=== PATIENT | male | born 1985 | race Two or more races ===

== ENCOUNTER 2020-01-13 17:39 | Inpatient (IN) | payer OTHER ==
[~2020-01-13] VITALS: Ht 175.3 cm; Wt 66.5 kg
[2020-01-13 17:47] VITALS: BP 108/58
--- NOTE | 2020-01-13 18:09 | Emergency Room Report ---
History of Present Illness General Chief Complaint: Dizziness Source: Patient (Christine Lorenzana) Present Illness HPI 34-year-old male with history of alcohol abuse brought in by paramedics due to hypotension. Patient reports that he went to [facility] earlier today due to a laceration on hand after he tried to break of a bottle of wine. Laceration was repaired however patient lost a lot of blood and believes that feels dizzy and is hypotensive. Patient also feels hungry. Denies any headache at this time he denies any head trauma or syncope. Denies chest pain shortness of breath, nausea vomiting at this time however reports that earlier today he was nauseated. Denies cough and congestion, loss of taste or smell, shortness of breath, diarrhea. Has not taken medication for symptom relief. Reports that earlier today he drank alcohol. Denies other drug use. Reports that he smokes tobacco. Patient is neurovascularly intact. No unilateral generalized weakness noted. No acute bleeding noted at this time. (Christine Lorenzana) Allergies: Coded Allergies: No Known Allergies (Unverified , 01/13/20) COVID-19 Screening Contact w/high risk pt: No Experienced COVID-19 symptoms?: No COVID-19 Testing performed OCCUPATIONAL THERAPY SPECIALIST: No (Christine Lorenzana) Patient History Past Medical History: see triage record Past Surgical History: none Pertinent Family History: none Immunizations: UTD Reviewed Nursing Documentation: PMH: Agreed; PSxH: Agreed (Christine Lorenzana) Nursing Documentation-PMH Past Medical History: No Stated History (Christine Lorenzana) Review of Systems All Other Systems: negative except mentioned in HPI (Christine Lorenzana) Physical Exam Vital Signs Date Time Temp Pulse Resp B/P (MAP) Pulse Ox O2 Delivery O2 Flow Rate FiO2 01/13/20 17:37 98.1 96 18 93/63 (73) 98 Room Air Sp02 EP Interpretation: reviewed, abnormal - Low blood pressure General Appearance: no apparent distress, alert, GCS 15, non-toxic Head: normocephalic, atraumatic Eyes: bilateral eye normal inspection, bilateral eye PERRL ENT: hearing grossly normal, normal pharynx, no angioedema, normal voice Neck: full range of motion, supple/symm/no masses Respiratory: chest non-tender, lungs clear, normal breath sounds, no rhonchi, no respiratory distress, no retraction, speaking full sentences Cardiovascular #1: regular rate, rhythm, no edema, no murmur Cardiovascular #2: 2+ carotid (R), 2+ carotid (L), 2+ radial (R), 2+ radial (L) , 2+ dorsalis pedis (R), 2+ dorsalis pedis (L) Gastrointestinal: normal bowel sounds, non tender, soft, non-distended, no guarding, no rebound Rectal: deferred Genitourinary: no CVA tenderness Musculoskeletal: back normal, digits/nails normal, no calf tenderness Neurologic: alert, motor strength/tone normal, oriented x3, sensory intact, responsive, speech normal Psychiatric: judgement/insight normal, memory normal, mood/affect normal, no suicidal/homicidal ideation Skin: other - Repaired lack dorsum of left hand Lymphatic: no adenopathy, axilla node tender (R) (Christine Lorenzana) Procedures Splinting Splinting : Consent: Verbal Location: distal ulna Splint: ulnar Pre-Proc Neuro Vasc Exam: normal Post-Proc Neuro Vasc Exam: normal Patient Tolerated: Well Complications: None Progress sling (Christine Lorenzana) Medical Decision Making PA Attestation All diagnosis and treatment plans were discussed and reviewed by my supervising physician Dr. Tao (Christine Lorenzana) Diagnostic Impression: Primary Impression: Hypotension Additional Impressions: Pulmonary nodule Distal end of ulna fracture, closed Ruled Out: Presence of inferior vena cava filter ER Course 34-year-old male with history of alcohol abuse brought in by paramedics due to hypotension. Patient reports that he went to [facility] earlier today due to a laceration on hand after he tried to break of a bottle of wine. Laceration was repaired however patient lost a lot of blood and believes that feels dizzy and is hypotensive. Patient also feels hungry. Denies any headache at this time he denies any head trauma or syncope. Denies chest pain shortness of breath, nausea vomiting at this time however reports that earlier today he was nauseated. Denies cough and congestion, loss of taste or smell, shortness of breath, diarrhea. Has not taken medication for symptom relief. Reports that earlier today he drank alcohol. Denies other drug use. Reports that he smokes tobacco. Patient is neurovascularly intact. No unilateral generalized weakness noted. No acute bleeding noted at this time. After visualization of chest x-ray IVC filter was noted and patient notified me that may have been placed in 2 to 2-1/2 years ago due to trauma however did not note that the filter is still in place. Patient has a follow-up with primary doctor again specialist since. Patient also denies any chest pain, hematochezia, melena, chest pain, shortness of breath, nausea vomiting and hemoptysis or hematemesis. Also reports that he had this pain removed at the age of 23 secondary to rib fracture and puncture spleen. Ddx considered but are not limited to: Dizziness due to alcohol intoxication, dizziness unspecified, dizziness due to head trauma, dizziness secondary to cardiac reasons Vital signs: are WNL, pt. is afebrile H&PE are most consistent with: Hypotension, presence of IVC, pulmonary nodule, distal ulnar fx ORDERS: CBC, CMP, UA, tox screen, CK, EtOH level, head CT no contrast, chest x- ray, EKG, troponin ER intervention: NS bolus, Zofran Recommended to do an echo as the patient has an early second troponin Patient was admitted with diagnosis of hypertension, pulmonary nodule, IVC filter to under supervision of : Dinh pt stable at time of admission I signed out the patient to Dr. Tao at 8:30 PM (Christine Lorenzana) ER Course Pt signed out to me from [facility]. Differential diagnosis for the patients symptoms include causes of peripheral vertigo (including BPPV, vestibular neuritis, Menieres disease, viral labyrinthitis), causes of central vertigo (including cerebellar ischemic stroke , hemorrhagic stroke, acoustic neuroma, vertebrobasilar insufficiency), malignant arrhythmias, obstructive heart disease (critical aortic stenosis, hypertrophic cardiomyopathy), acute anemia, severe dehydration, electrolyte abnormalities, among others. Patient's exam shows borderline hypotension, however SBP > 90mmHg and MAP > 75. He is not altered and perfusing well. He is otherwise afebrile with no reflexive tachycardia, pulse deficits, or fever. EKG shows no signs of malignant arrhythmia such as Brugada syndrome, delta wave , epsilon wave, significant heart block, or QTc >500. CXR shows thoracic aortic stent graft. No displacement. No PTX, hemothorax or wide mediastinum. Pt states it was placed in [place] several years ago after Troponin is negativex1. Labs show no severe electrolyte derangement such as severe hyponatremia, hypokalemia, acidosis, or hypoglycemia. UDS was positive for meth. Orthostatics were negative prior to fluid bolus. Patient was transiently fluid responsive. The patient denies any external blood loss and has no significant pallor or evidence of acute anemia as a cause of their symptoms. Hemoglobin is not severely low, and acute blood transfusion is not indicated. In addition, the patient has no loud murmur or evidence of significant obstructive heart disease, symptoms are not in the setting of exertion. The patient is neurologically intact, with normal cerebellar exam, without any evidence of central vertigo as a cause of their symptoms. They appear well hydrated without any evidence of severe dehydration or acute hypovolemia. However, given the patients risk factors, the patient would benefit from admission to observation for continuous cardiac monitoring, given the possibility of cardiac syncope. I spoke with Dr. Bai, and reviewed the patients presentation, workup, results , and treatment. They will admit the patient for further care and evaluation, and assume care of the patient at this time. patient refused ulnar gutter splint (Ana Lilia Tao.Saad) EKG Diagnostic Results Rate: normal Rhythm: NSR ST Segments: no acute changes Other Impression No acute ST changes (Christine Lorenzana) Chest X-Ray Diagnostic Results Chest X-Ray Diagnostic Results : Chest X-Ray Ordered: Yes # of Views/Limited/Complete: 1 View Indication: Other EP Interpretation: Yes PA Xray: Interpretation reviewed, by supervising MD, and agrees with findings. Interpretation: no consolidation, no effusion, no pneumothorax, no acute cardiopulmonary disease Impression: No acute disease Electronically Signed by: Christine Her Text FINDINGS: Lungs: The lungs are well aerated. 0.4 cm nodule at the periphery of the right upper lobe Minimal scarring at the right lung base. Pleural space: Unremarkable. No pneumothorax. Heart: Cardiomediastinal silhouette unremarkable. Mediastinum: See above. Bones/joints: The ribs are unremarkable. Vasculature: Thoracic aortic stent graft is noted in place appeared IMPRESSION: 1. 0.4 cm nodule right upper lobe of uncertain etiology appeared 2. Minimal scarring at the right lung base. 3. CT imaging of the chest without contrast is advised for further evaluation. (Christine Lorenzana) Other X-Ray Diagnostic Results Other X-Ray Diagnostic Results : X-Ray ordered: left hand # of Views/Limited Vs Complete: 2 View Indication: Pain EP Interpretation: Yes PA Xray: Interpretation reviewed, by supervising MD, and agrees with findings. Interpretation: other - healing fx distal ulna Impression: Other - healing fx distal ulna Electronically Signed by: Christine BLACK Scribe Text COMPARISON: None. FINDINGS: Bones/joints: No acute fracture, dislocation, or destructive process is noted about the left hand. There is a healing fracture of the distal ulna with callus formation. Soft tissues: Soft tissues are unremarkable. No radiopaque foreign body. IMPRESSION: 1. No acute fracture or dislocation detected. 2. Healing fracture about the distal ulna with callus formation. (Christine Lorenzana) CT/MRI/US Diagnostic Results CT/MRI/US Diagnostic Results : Imaging Test Ordered: CT head no contrast Impression TECHNIQUE: Axial computed tomography images of the head/brain without intravenous contrast. CTDI is 53.40 mGy and DLP is 1098.90 mGy-cm. One or more of the following dose reduction techniques were used: automated exposure control, adjustment of the mA and/or kV according to patient size, use of iterative reconstruction technique. COMPARISON: None. FINDINGS: Brain: No abnormal extra-axial collection could No hemorrhage. Midline shift: No midline shift or mass-effect. Ventricles: There is dilatation of the anterior horn of the left lateral ventricle of uncertain significant. Bones/joints: The calvarium is unremarkable. No acute fracture. Soft tissues: Unremarkable. Sinuses: Mild chronic ethmoid sinusitis. Mastoid air cells: Mastoid air cells are well pneumatized. IMPRESSION: 1. Dilatation of the anterior horn of the left lateral ventricle of uncertain significance. 2. No acute intracranial pathology is detected. 3. If there is concern for etiology such as early acute lacunar infarcts, magnetic resonance imaging of the brain with diffusion-weighted sequences should be performed for follow-up. (Christine Lorenzana) Last Vital Signs Date Time Temp Pulse Resp B/P (MAP) Pulse Ox O2 Delivery O2 Flow Rate FiO2 01/13/20 17:47 98.1 68 16 108/58 100 Room Air (Christine Lorenzana) Christine Lorenzana Jan 13, 2020 18:08 Ana Lilia Tao D.O. Jan 14, 2020 10:23
--- NOTE | 2020-01-13 18:29 | Diagnostic Imaging Report ---
EXAM: CT Head Without Intravenous Contrast CLINICAL HISTORY: Dizziness. TECHNIQUE: Axial computed tomography images of the head/brain without intravenous contrast. CTDI is 53.40 mGy and DLP is 1098.90 mGy-cm. One or more of the following dose reduction techniques were used: automated exposure control, adjustment of the mA and/or kV according to patient size, use of iterative reconstruction technique. COMPARISON: None. FINDINGS: Brain: No abnormal extra-axial collection could No hemorrhage. Midline shift: No midline shift or mass-effect. Ventricles: There is dilatation of the anterior horn of the left lateral ventricle of uncertain significant. Bones/joints: The calvarium is unremarkable. No acute fracture. Soft tissues: Unremarkable. Sinuses: Mild chronic ethmoid sinusitis. Mastoid air cells: Mastoid air cells are well pneumatized. IMPRESSION: 1. Dilatation of the anterior horn of the left lateral ventricle of uncertain significance. 2. No acute intracranial pathology is detected. 3. If there is concern for etiology such as early acute lacunar infarcts, magnetic resonance imaging of the brain with diffusion-weighted sequences should be performed for follow-up.
[2020-01-13 18:30] LABS: BASOPHILS % (AUTO) 0.9 % (0.0-2.0); EOSINOPHILS % (AUTO) 0.2 % (0.0-3.0); HEMATOCRIT 31.6 % (42.0-52.0); HEMOGLOBIN 10.9 G/DL (14.2-18.0); LYMPHOCYTES % (AUTO) 9.8 % (20.0-45.0); MEAN CORPUSCULAR VOLUME 96 FL (80-99); MONOCYTES % (AUTO) 5.5 % (1.0-10.0); NEUTROPHILS % (AUTO) 83.6 % (45.0-75.0); PLATELET COUNT 205 K/UL (150-450); RED BLOOD COUNT 3.29 M/UL (4.70-6.10); RED CELL DISTRIBUTION WIDTH 12.6 % (11.6-14.8); WHITE BLOOD COUNT 9.2 K/UL (4.8-10.8)
--- NOTE | 2020-01-13 18:30 | Diagnostic Imaging Report ---
EXAM: XR Chest, 1 View CLINICAL HISTORY: Chest pain. TECHNIQUE: Frontal view of the chest. COMPARISON: None FINDINGS: Lungs: The lungs are well aerated. 0.4 cm nodule at the periphery of the right upper lobe Minimal scarring at the right lung base. Pleural space: Unremarkable. No pneumothorax. Heart: Cardiomediastinal silhouette unremarkable. Mediastinum: See above. Bones/joints: The ribs are unremarkable. Vasculature: Thoracic aortic stent graft is noted in place appeared IMPRESSION: 1. 0.4 cm nodule right upper lobe of uncertain etiology appeared 2. Minimal scarring at the right lung base. 3. CT imaging of the chest without contrast is advised for further evaluation.
[2020-01-13 18:40] LABS: ANION GAP 9 mmol/L (5-15); BLOOD UREA NITROGEN 11 mg/dL (7-18); CALCIUM 8.1 MG/DL (8.5-10.1); CARBON DIOXIDE 25 MMOL/L (21-32); CHLORIDE 103 MMOL/L (98-107); CREATININE 0.8 MG/DL (0.55-1.30); POTASSIUM 4.2 MMOL/L (3.5-5.1); SODIUM 137 MMOL/L (136-145)
[2020-01-13 18:44] LABS: CREATINE KINASE 125 U/L (26-308)
[2020-01-13 18:47] LABS: APPEARANCE,URINE SLIGHTLY CLOUDY; BILIRUBIN, URINE 1+ (NEGATIVE); GLUCOSE, URINE (UA) NEGATIVE (NEGATIVE); KETONES,URINE 2+ (NEGATIVE); LEUKOCYTE ESTERASE ,URINE 1+ (NEGATIVE); NITRITE,URINE NEGATIVE (NEGATIVE); PH,URINE 6.5 (4.5-8.0); PROTEIN,URINE 2+ (NEGATIVE); UROBILINOGEN,URINE 8 MG/DL (0.0-1.0)
[2020-01-13 18:50] LABS: COLOR,URINE YELLOW
[2020-01-13 18:52] LABS: ALANINE AMINOTRANSFERASE 20 U/L (12-78); ALBUMIN 3.3 G/DL (3.4-5.0); ALBUMIN/GLOBULIN RATIO 1.3 (1.0-2.7); ALKALINE PHOSPHATASE 60 U/L (46-116); ASPARTATE AMINO TRANSFERASE 26 U/L (15-37); BILIRUBIN,TOTAL 0.8 MG/DL (0.2-1.0)
--- NOTE | 2020-01-13 18:58 | Diagnostic Imaging Report ---
EXAM: XR Left Hand Complete, 3 or More Views CLINICAL HISTORY: TRAUMA TECHNIQUE: Frontal, lateral and oblique views of the left hand. COMPARISON: None. FINDINGS: Bones/joints: No acute fracture, dislocation, or destructive process is noted about the left hand. There is a healing fracture of the distal ulna with callus formation. Soft tissues: Soft tissues are unremarkable. No radiopaque foreign body. IMPRESSION: 1. No acute fracture or dislocation detected. 2. Healing fracture about the distal ulna with callus formation.
[2020-01-13 19:10] VITALS: BP 98/68
[2020-01-13] MEDS ORDERED: cefTRIAXone 1 GM in NS 55 ML IVPB ONE (19:15)
[2020-01-13 21:00] VITALS: BP 127/82
[2020-01-13] MEDS ORDERED: Morphine Sulfate 4mg/ml Inj (IV USE ONLY) IVP PRN (22:30)
[2020-01-13 23:00] VITALS: BP 121/78
[2020-01-13 23:45] VITALS: BP 106/50
[2020-01-14 04:00] VITALS: BP 104/53
[2020-01-14 08:00] VITALS: BP 117/68
[2020-01-14] MEDS: D5 1/2NS 1,000 ML IV SCH (09:07)
[2020-01-14 12:00] VITALS: BP 112/64
--- NOTE | 2020-01-14 12:34 | Consultation ---
History of Present Illness General Date patient seen: Jan 14, 2020 Reason for Hospitalization: Dizziness Present Illness HPI This is a 34-year-old male with history of opiate use and alcohol abuse who initially presented to [facility] recently with left hand laceration from a wine bottle which was repaired. States he felt he lost a lot of blood was discharged and felt dizzy and weak and was brought to [facility] for evaluation thereafter. Admitted further care and management. Patient states he had a dressing/type a splint placed on his left hand but he took it off himself and was unsure what to do with the hand and wound at this time. Surgery called to evaluate and assist with care. Patient seen, patient eval, chart reviewed. States discomfort in the left hand with edema no drainage. Imaging reviewed. Allergies: Coded Allergies: No Known Allergies (Unverified , 01/13/20) COVID-19 Screening Contact w/high risk pt: No Experienced COVID-19 symptoms?: No Patient History History Provided By: Patient, Medical Record, PMD Healthcare decision maker Resuscitation status Advanced Directive on File Past Medical/Surgical History Past Medical/Surgical History: (1) Presence of inferior vena cava filter (2) Dizziness (3) Hypotension (4) Pulmonary nodule (5) Distal end of ulna fracture, closed (6) left hand lceration (7) Laceration of left hand Review of Systems Review of Symptoms General ROS: no weight loss or fever Psychological ROS: no depression or mood changes, no memory loss Ophthalmic ROS: no visual changes or eye irritation ENT ROS: no nasal congestion, hearing loss, dizziness Allergy and Immunology ROS: no allergic symptoms or urticaria Hematological and Lymphatic ROS: no swollen glands, unusual bleeding or bruising Endocrine ROS: no polyuria, polydipsia, weight changes, temperature intolerance Respiratory ROS: no cough, shortness of breath, or wheezing Cardiovascular ROS: no chest pain or dyspnea on exertion Gastrointestinal ROS: denies abdominal pain, bright red blood in stool. Musculoskeletal ROS: no myalgias or arthralgias Neurological ROS: no TIA or stroke symptoms Dermatological ROS: no new or changing skin lesions, rashes or pruritis Physical Exam Physical Exam General appearance: alert, cooperative, no distress, appears stated age Head: Normocephalic, without obvious abnormality, atraumatic Eyes: conjunctivae/corneas clear. PERRL, EOM's intact. Fundi benign Throat: Lips, mucosa, and tongue normal. Teeth and gums normal Neck: supple, symmetrical, trachea midline, no adenopathy, thyroid: not enlarged, symmetric, no tenderness/mass/nodules, no carotid bruit and no JVD Lungs: clear to auscultation bilaterally Heart: regular rate and rhythm, S1, S2 normal, no murmur, click, rub or gallop Abdomen: soft, non-tender. Bowel sounds normal. No masses, no organomegaly Extremities: extremities left hand fifth digit dorsal laceration 5 cm status post repair edema noted no infection noted no drainage noted currently undressed. Pulses: 2+ and symmetric Skin: Skin color, texture, turgor normal. No rashes or lesions Neurologic: Grossly normal Last 24 Hour Vital Signs Date Time Temp Pulse Resp B/P (MAP) Pulse Ox O2 Delivery O2 Flow Rate FiO2 01/14/20 12:00 97.9 60 20 112/64 (80) 99 01/14/20 09:00 Room Air 01/14/20 08:44 69 01/14/20 08:00 97.9 60 20 117/68 (84) 98 01/14/20 04:00 75 01/14/20 04:00 97.6 70 19 104/53 (70) 100 01/14/20 03:07 65 01/14/20 00:00 75 01/13/20 23:54 Room Air 01/13/20 23:45 97.9 67 19 106/50 (68) 98 01/13/20 23:40 98.0 88 18 121/78 98 Room Air 01/13/20 23:00 98.2 82 18 121/78 100 Room Air 01/13/20 21:00 98.2 88 18 127/82 100 Room Air 01/13/20 19:10 98.2 85 16 98/68 100 Room Air 01/13/20 17:47 98.1 68 16 108/58 100 Room Air 01/13/20 17:47 96 18 Room Air 01/13/20 17:37 98.1 96 18 93/63 (73) 98 Room Air Intake and Output 01/13/20 01/14/20 19:00 07:00 Intake Total 1000 ml 300 ml Output Total 800 ml Balance 1000 ml -500 ml Intake Oral 300 ml IV Total 1000 ml Output Urine Total 800 ml # Voids 1 Laboratory Tests Test 8/29/20 17:10 01/13/20 17:50 01/13/20 18:40 01/14/20 08:55 Salicylates Level 2.9 ug/mL (2.8-20) White Blood Count 9.2 K/UL (4.8-10.8) Red Blood Count 3.29 M/UL (4.70-6.10) L Hemoglobin 10.9 G/DL (14.2-18.0) L Hematocrit 31.6 % (42.0-52.0) L Mean Corpuscular Volume 96 FL (80-99) Mean Corpuscular Hemoglobin 33.1 PG (27.0-31.0) H Mean Corpuscular Hemoglobin Concent 34.5 G/DL (32.0-36.0) Red Cell Distribution Width 12.6 % (11.6-14.8) Platelet Count 205 K/UL (150-450) Mean Platelet Volume 8.4 FL (6.5-10.1) Neutrophils (%) (Auto) 83.6 % (45.0-75.0) H Lymphocytes (%) (Auto) 9.8 % (20.0-45.0) L Monocytes (%) (Auto) 5.5 % (1.0-10.0) Eosinophils (%) (Auto) 0.2 % (0.0-3.0) Basophils (%) (Auto) 0.9 % (0.0-2.0) Prothrombin Time 11.1 SEC (9.30-11.50) Prothromb Time International Ratio 1.0 (0.9-1.1) Activated Partial Thromboplast Time 22 SEC (23-33) L Sodium Level 137 MMOL/L (136-145) Potassium Level 4.2 MMOL/L (3.5-5.1) Chloride Level 103 MMOL/L (98-107) Carbon Dioxide Level 25 MMOL/L (21-32) Anion Gap 9 mmol/L (5-15) Blood Urea Nitrogen 11 mg/dL (7-18) Creatinine 0.8 MG/DL (0.55-1.30) Estimat Glomerular Filtration Rate > 60 mL/min (>60) Glucose Level 118 MG/DL (74-106) H Calcium Level 8.1 MG/DL (8.5-10.1) L Total Bilirubin 0.8 MG/DL (0.2-1.0) Aspartate Amino Transf (AST/SGOT) 26 U/L (15-37) Alanine Aminotransferase (ALT/SGPT) 20 U/L (12-78) Alkaline Phosphatase 60 U/L (46-116) Total Creatine Kinase 125 U/L (26-308) Troponin I 0.011 ng/mL (0.000-0.056) 0.000 ng/mL (0.000-0.056) Total Protein 5.9 G/DL (6.4-8.2) L Albumin 3.3 G/DL (3.4-5.0) L Globulin 2.6 g/dL Albumin/Globulin Ratio 1.3 (1.0-2.7) Thyroid Stimulating Hormone (TSH) 0.664 uiU/mL (0.358-3.740) Acetaminophen Level < 2 MCG/ML (10-30) L Serum Alcohol 5 mg/dL Urine Color Yellow Urine Appearance Slightly cloudy Urine pH 6.5 (4.5-8.0) Urine Specific [place] 1.015 (1.005-1.035) Urine Protein 2+ (NEGATIVE) H Urine Glucose (UA) Negative (NEGATIVE) Urine Ketones 2+ (NEGATIVE) H Urine Blood Negative (NEGATIVE) Urine Nitrite Negative (NEGATIVE) Urine Bilirubin 1+ (NEGATIVE) H Urine Ictotest Negative (NEGATIVE) Urine Urobilinogen 8 MG/DL (0.0-1.0) H Urine Leukocyte Esterase 1+ (NEGATIVE) H Urine RBC 0 /HPF (0 - 0) Urine WBC 5-10 /HPF (0 - 0) H Urine Squamous Epithelial Cells None /LPF (NONE/OCC) Urine Amorphous Sediment Moderate /LPF (NONE) H Urine Bacteria Few /HPF (NONE) Urine Opiates Screen Negative (NEGATIVE) Urine Barbiturates Screen Negative (NEGATIVE) Phencyclidine (PCP) Screen Negative (NEGATIVE) Urine Amphetamines Screen Negative (NEGATIVE) Urine Benzodiazepines Screen Negative (NEGATIVE) Urine Cocaine Screen Negative (NEGATIVE) Urine Marijuana (THC) Screen Positive (NEGATIVE) H Height (Feet): 5 Height (Inches): 9.00 Weight (Pounds): 148 Medications Current Medications Medications (Trade) Dose Ordered Sig/Shonda Route PRN Reason Start Time Stop Time Status Last Admin Dose Admin Ceftriaxone Sodium 1 gm/ Dextrose 55 ml @ 110 mls/hr Q24H IVPB 01/14/20 12:30 01/21/20 12:29 UNV Dextrose/Sodium Chloride 1,000 ml @ 60 mls/hr [id number] IV 01/14/20 09:30 02/13/20 09:29 01/14/20 09:07 Morphine Sulfate (Morphine Sulfate) 4 mg PRN PRN IVP Moderate Pain (Pain Scale 4-6) 01/13/20 22:30 Ondansetron HCl (Zofran) 4 mg PRN PRN IVP Nausea & Vomiting 01/13/20 22:30 Vancomycin HCl (Vanco pharmacy to dose) 1 ea DAILY PRN MISC Per rx protocol 01/14/20 12:30 02/13/20 12:29 UNV Assessment/Plan Problem List: (1) Presence of inferior vena cava filter ICD Codes: Z95.828 - Presence of other vascular implants and grafts SNOMED: 577212936830915, 509277402 (2) Dizziness ICD Codes: R42 - Dizziness and giddiness SNOMED: 415038338, 833548838 (3) Hypotension ICD Codes: I95.9 - Hypotension, unspecified SNOMED: 10150526 (4) Pulmonary nodule ICD Codes: R91.1 - Solitary pulmonary nodule SNOMED: 066228458, 898423033 (5) Distal end of ulna fracture, closed ICD Codes: S52.609A - Unspecified fracture of lower end of unspecified ulna, initial encounter for closed fracture SNOMED: 67434185, 717591405 (6) Laceration of left hand Assessment & Plan: 34-year-old male laceration to left hand from wine bottle status post washout and repair at [facility]. Patient took off dressings and plan care plan unsure of what it was. On evaluation left hand the fourth and fifth digit have edema at the PIP phalangeal joint but no signs of infection or abscess. No fluid collection or hematoma. Wound is clean and intact. No drainage. Range of motion mildly deficit given the edema. With assistance as has significant improved range of motion. Recommend dressings but patient prefers to leave wound open to air. At this point will monitor wound locally. Do not recommend a splint as he does have range of motion did not have any other significant injury though aware of. Okay to wash and daily with soap and water. Local hygiene. Will monitor. Thank you for your participation's care will follow with recommendations Bones/joints: No acute fracture, dislocation, or destructive process is noted about the left hand. There is a healing fracture of the distal ulna with callus formation. Soft tissues: Soft tissues are unremarkable. No radiopaque foreign body. IMPRESSION: 1. No acute fracture or dislocation detected. 2. Healing fracture about the distal ulna with callus formation. ICD Codes: S61.412A - Laceration without foreign body of left hand, initial encounter SNOMED: 540136289 (7) left hand lceration CarloslukemicheletTerrence Jan 14, 2020 12:34
[2020-01-14] MEDS ORDERED: Vancomycin 1gm in D5W 275ml IVPB SCH (14:00)
--- NOTE | 2020-01-14 14:14 | History and Physical Report ---
DATE OF ADMISSION: 01/13/2020 TIME SEEN: 8 a.m. CONSULTANTS: 1. Magdy Lane MD. 2. . CHIEF COMPLAINT: Presyncopal, hypotension, aortic stenosis. BRIEF HISTORY: This is a 34-year-old homeless man who presents to [facility] with above-mentioned diagnoses, admitted to telemetry for near syncopal episode. The patient currently calm in bed, no complaint. No chest pain. No shortness of breath. No nausea, vomiting, or diarrhea. PAST MEDICAL HISTORY: CHF, drug abuse, aortic stenosis. PAST SURGICAL HISTORY: Right arm . MEDICATIONS: Include morphine, Zofran, Tylenol, ceftriaxone. ALLERGIES: Denies. SOCIAL HISTORY: Positive smoke. Positive alcohol. Positive marijuana use. OBJECTIVE: GENERAL: Calm in bed, oriented x3, no acute distress. VITAL SIGNS: Temperature 97, pulse 75, respiratory rate 19, blood pressure 104/53. CARDIOVASCULAR: No murmur. LUNGS: Distant and clear. ABDOMEN: Positive bowel sounds. Soft, nontender, nondistended. EXTREMITIES: No cyanosis or edema. NEUROLOGIC: The patient moves all extremities, slightly weak. LABORATORY DATA: Labs at this time show hemoglobin and hematocrit 10.9 and 31, otherwise CBC is normal. BMP shows glucose 118 and calcium 8.1, albumin 3.3. INR is 1.0 and PTT is 22. Urine tox positive for marijuana. Urinalysis, 1+ bilirubin, 2+ ketone, 2+ protein, 1+ leukocyte esterase. ASSESSMENT: 1. Presyncope. 2. UTI. 3. Hypotension. 4. Aortic stenosis. 5. Drug abuse. 6. Anemia. 7. Malnutrition. 8. CHF. PLAN: 1. Antibiotic per Infectious Disease. 2. Blood pressure and pain control. 3. Detox. 4. Dietary followup. 5. Hematology, Dr. Pineda and ID were consulted. Felton Bai D.O. DR: Gerda JOB#: [id number] CC:
--- NOTE | 2020-01-14 15:25 | Cardiac Electrophysiology PN ---
Subjective Subjective [id number] Objective Last 24 Hour Vital Signs Date Time Temp Pulse Resp B/P (MAP) Pulse Ox O2 Delivery O2 Flow Rate FiO2 01/14/20 12:00 97.9 60 20 112/64 (80) 99 01/14/20 11:50 56 01/14/20 09:00 Room Air 01/14/20 08:44 69 01/14/20 08:00 97.9 60 20 117/68 (84) 98 01/14/20 04:00 75 01/14/20 04:00 97.6 70 19 104/53 (70) 100 01/14/20 03:07 65 01/14/20 00:00 75 01/13/20 23:54 Room Air 01/13/20 23:45 97.9 67 19 106/50 (68) 98 01/13/20 23:40 98.0 88 18 121/78 98 Room Air 01/13/20 23:00 98.2 82 18 121/78 100 Room Air 01/13/20 21:00 98.2 88 18 127/82 100 Room Air 01/13/20 19:10 98.2 85 16 98/68 100 Room Air 01/13/20 17:47 98.1 68 16 108/58 100 Room Air 01/13/20 17:47 96 18 Room Air 01/13/20 17:37 98.1 96 18 93/63 (73) 98 Room Air Intake and Output 01/13/20 01/14/20 19:00 07:00 Intake Total 1000 ml 300 ml Output Total 800 ml Balance 1000 ml -500 ml Intake Oral 300 ml IV Total 1000 ml Output Urine Total 800 ml # Voids 1 Laboratory Tests Test 01/13/20 17:10 01/13/20 17:50 01/13/20 18:40 01/14/20 08:55 Salicylates Level 2.9 ug/mL (2.8-20) White Blood Count 9.2 K/UL (4.8-10.8) Red Blood Count 3.29 M/UL (4.70-6.10) L Hemoglobin 10.9 G/DL (14.2-18.0) L Hematocrit 31.6 % (42.0-52.0) L Mean Corpuscular Volume 96 FL (80-99) Mean Corpuscular Hemoglobin 33.1 PG (27.0-31.0) H Mean Corpuscular Hemoglobin Concent 34.5 G/DL (32.0-36.0) Red Cell Distribution Width 12.6 % (11.6-14.8) Platelet Count 205 K/UL (150-450) Mean Platelet Volume 8.4 FL (6.5-10.1) Neutrophils (%) (Auto) 83.6 % (45.0-75.0) H Lymphocytes (%) (Auto) 9.8 % (20.0-45.0) L Monocytes (%) (Auto) 5.5 % (1.0-10.0) Eosinophils (%) (Auto) 0.2 % (0.0-3.0) Basophils (%) (Auto) 0.9 % (0.0-2.0) Prothrombin Time 11.1 SEC (9.30-11.50) Prothromb Time International Ratio 1.0 (0.9-1.1) Activated Partial Thromboplast Time 22 SEC (23-33) L Sodium Level 137 MMOL/L (136-145) Potassium Level 4.2 MMOL/L (3.5-5.1) Chloride Level 103 MMOL/L (98-107) Carbon Dioxide Level 25 MMOL/L (21-32) Anion Gap 9 mmol/L (5-15) Blood Urea Nitrogen 11 mg/dL (7-18) Creatinine 0.8 MG/DL (0.55-1.30) Estimat Glomerular Filtration Rate > 60 mL/min (>60) Glucose Level 118 MG/DL (74-106) H Calcium Level 8.1 MG/DL (8.5-10.1) L Total Bilirubin 0.8 MG/DL (0.2-1.0) Aspartate Amino Transf (AST/SGOT) 26 U/L (15-37) Alanine Aminotransferase (ALT/SGPT) 20 U/L (12-78) Alkaline Phosphatase 60 U/L (46-116) Total Creatine Kinase 125 U/L (26-308) Troponin I 0.011 ng/mL (0.000-0.056) 0.000 ng/mL (0.000-0.056) Total Protein 5.9 G/DL (6.4-8.2) L Albumin 3.3 G/DL (3.4-5.0) L Globulin 2.6 g/dL Albumin/Globulin Ratio 1.3 (1.0-2.7) Thyroid Stimulating Hormone (TSH) 0.664 uiU/mL (0.358-3.740) Acetaminophen Level < 2 MCG/ML (10-30) L Serum Alcohol 5 mg/dL Urine Color Yellow Urine Appearance Slightly cloudy Urine pH 6.5 (4.5-8.0) Urine Specific [place] 1.015 (1.005-1.035) Urine Protein 2+ (NEGATIVE) H Urine Glucose (UA) Negative (NEGATIVE) Urine Ketones 2+ (NEGATIVE) H Urine Blood Negative (NEGATIVE) Urine Nitrite Negative (NEGATIVE) Urine Bilirubin 1+ (NEGATIVE) H Urine Ictotest Negative (NEGATIVE) Urine Urobilinogen 8 MG/DL (0.0-1.0) H Urine Leukocyte Esterase 1+ (NEGATIVE) H Urine RBC 0 /HPF (0 - 0) Urine WBC 5-10 /HPF (0 - 0) H Urine Squamous Epithelial Cells None /LPF (NONE/OCC) Urine Amorphous Sediment Moderate /LPF (NONE) H Urine Bacteria Few /HPF (NONE) Urine Opiates Screen Negative (NEGATIVE) Urine Barbiturates Screen Negative (NEGATIVE) Phencyclidine (PCP) Screen Negative (NEGATIVE) Urine Amphetamines Screen Negative (NEGATIVE) Urine Benzodiazepines Screen Negative (NEGATIVE) Urine Cocaine Screen Negative (NEGATIVE) Urine Marijuana (THC) Screen Positive (NEGATIVE) H Magdy Lane MD Jan 14, 2020 15:25
[2020-01-14 16:00] VITALS: BP 110/67
[2020-01-14] MEDS: Thiamine 100mg tab ORAL SCH (18:16)
[2020-01-14] MEDS ORDERED: cefTRIAXone 1 GM in D5W 55 ML IVPB SCH (19:00)
[2020-01-14 20:00] VITALS: BP 111/66
--- NOTE | 2020-01-14 21:15 | Consultation ---
DATE OF CONSULTATION: 01/14/2020 CARDIOLOGY CONSULTATION CONSULTING PHYSICIAN: Magdy Lane MD. REFERRING PHYSICIAN: Felton Bai DO. REASON FOR CONSULTATION: Hypotension and dizziness. HISTORY OF PRESENT ILLNESS: Patient is a 34-year-old gentleman with history of alcohol use who was brought by paramedics for hypotension. Patient states that he went to [facility] earlier with laceration in the hand after he tried to break a bottle of wine. Laceration was repaired. However, patient had lost a lot of blood and believed that then he became dizzy and hypotensive. Patient said that he was hungry. Denies any chest pain or palpitation or shortness of breath. Patient denies any syncope or head trauma. Patient was admitted and a Cardiology consultation was obtained for further evaluation. Is it of note that patient's blood pressure in the ER was 92/63 with a pulse of 96 and respirations of 18. REVIEW OF SYSTEMS: Negative other than what was mentioned in the history of present illness. PAST MEDICAL HISTORY: 1. History of IVC filter. 2. History of aortic stent graft per chart. 3. History of distal ulnar fracture. PHYSICAL EXAMINATION: VITAL SIGNS: Show blood pressure of 112/64, pulse 60, respirations 18, he is afebrile. HEAD AND NECK: Showed no JVD. LUNGS: Clear. CARDIOVASCULAR: Showed regular S1 and S2 with no gallop or murmur. ABDOMEN: Soft. EXTREMITIES: No pitting edema. LABORATORY AND DIAGNOSTIC DATA: His EKG showed normal sinus rhythm, normal electrocardiogram. His echocardiogram showed normal left ventricular systolic function and EF of 60%. His labs show white count of 9, hemoglobin 11, hematocrit 31, and platelet count is 205. Sodium 137, potassium 4.2, BUN of 11, creatinine 0.8, and glucose of 118. Troponin negative x2. ASSESSMENT AND PLAN: 1. Hypotension. Patient already ruled out for myocardial infarction. EKG is nonischemic. An echocardiogram showed normal left ventricular systolic function. evaluation is also pending. 2. Presence of IVC filter. 3. History of pulmonary nodule. 4. Distal ulnar fracture. 5. Left hand laceration. Follow up by Dr. Jurado. Thank you very much for allowing me to participate in the care of this patient. Please do not hesitate to contact me for any questions regarding my evaluation. Magdy Lane M.D. DR: ÁNGEL JOB#: [id number] CC:
[2020-01-14] MEDS: Vancomycin 1gm in Dextrose 275ml IVPB SCH (21:38)
[2020-01-15] VITALS (8 sets, daily range): BP systolic 95–143; BP diastolic 49–92
[2020-01-15] MEDS: D5 1/2NS 1,000 ML IV SCH ×2 (02:01→18:24)
[2020-01-15] MEDS: Vancomycin 1gm in Dextrose 275ml IVPB SCH (05:31)
--- NOTE | 2020-01-15 07:14 | Consultation ---
History of Present Illness General Chief Complaint: Dizziness Present Illness Allergies: Coded Allergies: No Known Allergies (Unverified , 01/13/20) Patient History Healthcare decision maker Resuscitation status Advanced Directive on File Physical Exam Last 24 Hour Vital Signs Date Time Temp Pulse Resp B/P (MAP) Pulse Ox O2 Delivery O2 Flow Rate FiO2 01/15/20 04:00 97.5 55 16 123/72 (89) 97 01/15/20 04:00 59 01/15/20 01:00 55 58 72 01/15/20 00:00 91 01/15/20 00:00 99.0 56 16 95/49 (64) 99 01/14/20 21:00 Room Air 01/14/20 20:00 98.8 64 18 111/66 (81) 100 01/14/20 20:00 69 01/14/20 16:18 69 69 75 01/14/20 16:00 98.0 69 20 110/67 (81) 99 01/14/20 15:33 76 01/14/20 12:00 97.9 60 20 112/64 (80) 99 01/14/20 11:50 56 01/14/20 09:00 Room Air 01/14/20 08:44 69 01/14/20 08:00 97.9 60 20 117/68 (84) 98 Intake and Output 01/14/20 01/15/20 19:00 07:00 Intake Total 1430.000 ml 480 ml Output Total 2500 ml Balance 1430.000 ml -2020 ml Intake Oral 500 ml 480 ml IV Total 930.000 ml Output Urine Total 2500 ml # Voids 3 3 # Bowel Movements 1 Laboratory Tests Test 01/14/20 08:55 01/14/20 16:10 Troponin I 0.000 ng/mL (0.000-0.056) 0.000 ng/mL (0.000-0.056) Ferritin 93 NG/ML (8-388) Height (Feet): 5 Height (Inches): 9.00 Weight (Pounds): 146 Medications Current Medications Medications (Trade) Dose Ordered Sig/Shonda Route PRN Reason Start Time Stop Time Status Last Admin Dose Admin Ceftriaxone Sodium 1 gm/ Dextrose 55 ml @ 110 mls/hr Q24H IVPB 01/14/20 19:00 01/21/20 18:59 01/14/20 18:16 Dextrose/Sodium Chloride 1,000 ml @ 60 mls/hr [id number] IV 01/14/20 09:30 02/13/20 09:29 01/15/20 02:01 Morphine Sulfate (Morphine Sulfate) 4 mg PRN PRN IVP Moderate Pain (Pain Scale 4-6) 01/13/20 22:30 Ondansetron HCl (Zofran) 4 mg PRN PRN IVP Nausea & Vomiting 01/13/20 22:30 Thiamine HCl (Vitamin B1) 100 mg THREE TIMES A DAY ORAL 01/14/20 18:00 02/13/20 17:59 01/14/20 18:16 Vancomycin HCl (Vanco pharmacy to dose) 1 ea DAILY PRN MISC Per rx protocol 01/14/20 12:30 02/13/20 12:29 Vancomycin HCl 1 gm/Dextrose 275 ml @ 183.708 mls/hr Q8HR IVPB 01/14/20 22:00 01/19/20 21:59 01/15/20 05:31 Assessment/Plan Assessment/Plan: Hematology Consultation REQ MD Felton Bai RFC: Anemia evaluation DOS 01/15/20 HPI 34-year-old male with history of alcohol abuse brought in by paramedics due to hypotension. Patient reports that he went to [facility] earlier today due to a laceration on hand after he tried to break of a bottle of wine. Laceration was repaired however patient lost a lot of blood and believes that feels dizzy and is hypotensive. Patient also feels hungry. Denies any headache at this time he denies any head trauma or syncope. Denies chest pain shortness of breath, nausea vomiting at this time however reports that earlier today he was nauseated. Denies cough and congestion, loss of taste or smell, shortness of breath, diarrhea. Has not taken medication for symptom relief. Reports that earlier today he drank alcohol. Denies other drug use. Reports that he smokes tobacco. Patient is neurovascularly intact. No unilateral generalized weakness noted. No acute bleeding noted at this time. Currently tired in the am, doesn't want to talk, labs are still pending, recent hgb 8.9 Allergies: No Known Allergies (Unverified , 01/13/20) Contact w/high risk pt: No Experienced COVID-19 symptoms?: No COVID-19 Testing performed [employer]ASKET [employer] METAL: No Past Medical History: see triage record Past Surgical History: none Pertinent Family History: none Immunizations: UTD Reviewed Nursing Documentation: PMH: Agreed; PSxH: Agreed Past Medical History: No Stated History Review of Systems All Other Systems: negative except mentioned in HPI Physical Exam General: no apparent distress, alert, GCS 15, non-toxic HEENT: hearing grossly normal, normal pharynx, no angioedema, normal voice Neck: full range of motion, supple/symm/no masses Resp: chest non-tender, lungs clear, normal breath sounds, no rhonchi, no respiratory distress, no retraction, speaking full sentences Cardi: regular rate, rhythm, no edema, no murmur Gastrointestinal: normal bowel sounds, non tender, soft, non-distended, no guarding, no rebound Genit: no CVA tenderness Musculoskeletal: back normal, digits/nails normal, no calf tenderness Labs: noted Imaging: reviewed Assessment and Recs # Anemia is likely due to iron deficiency, r/o gi bleed -> anemia panel has been noted --> started on venofer 100mg iv daily x 5 days --> r/o gi bleeding --> no evidence of hemolysis # 0.4 cm nodule right upper lobe of uncertain etiology appeared --> ct of the chest w/o contrast --> can be done oiutpatient in next 6 months # Hypotension --> ivfs given --> ekg as per cards # Distal end of ulna fracture, closed --> per ortho # Aortic stent graft # Questionable ivc filter Appreciate consultation and dw Govind Perez MD Jan 15, 2020 07:14
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
[2020-01-15 08:53] LABS: BASOPHILS % (AUTO) 0.7 % (0.0-2.0); EOSINOPHILS % (AUTO) 0.7 % (0.0-3.0); HEMOGLOBIN 10.8 G/DL (14.2-18.0); LYMPHOCYTES % (AUTO) 18.4 % (20.0-45.0); MEAN CORPUSCULAR VOLUME 96 FL (80-99); MONOCYTES % (AUTO) 11.1 % (1.0-10.0); NEUTROPHILS % (AUTO) 69.1 % (45.0-75.0); PLATELET COUNT 222 K/UL (150-450); RED BLOOD COUNT 3.33 M/UL (4.70-6.10); RED CELL DISTRIBUTION WIDTH 12.8 % (11.6-14.8); WHITE BLOOD COUNT 8.4 K/UL (4.8-10.8)
[2020-01-15 09:05] LABS: ANION GAP 8 mmol/L (5-15); BLOOD UREA NITROGEN 7 mg/dL (7-18); CALCIUM 8.2 MG/DL (8.5-10.1); CARBON DIOXIDE 27 MMOL/L (21-32); CHLORIDE 103 MMOL/L (98-107); POTASSIUM 3.5 MMOL/L (3.5-5.1); SODIUM 138 MMOL/L (136-145)
[2020-01-15] MEDS: Thiamine 100mg tab ORAL SCH ×3 (09:09→18:23)
--- NOTE | 2020-01-15 09:15 | General Progress Note ---
Assessment/Plan Problem List: (1) UTI (urinary tract infection) ICD Codes: N39.0 - Urinary tract infection, site not specified SNOMED: 61713041 (2) Pre-syncope ICD Codes: R55 - Syncope and collapse SNOMED: 825525149 (3) Drug abuse ICD Codes: F19.10 - Other psychoactive substance abuse, uncomplicated SNOMED: 09868740 (4) Malnutrition ICD Codes: E46 - Unspecified protein-calorie malnutrition SNOMED: 85394695 (5) Anemia ICD Codes: D64.9 - Anemia, unspecified SNOMED: 890595416 (6) Dizziness ICD Codes: R42 - Dizziness and giddiness SNOMED: 606988136, 640761516 (7) Hypotension ICD Codes: I95.9 - Hypotension, unspecified SNOMED: 39137505 Status: unchanged Assessment/Plan: abx detox neuro f/u cbc bmp am Subjective Constitutional: Reports: weakness Allergies: Coded Allergies: No Known Allergies (Unverified , 01/13/20) All Systems: reviewed and negative except above Subjective calm in bed Objective Last 24 Hour Vital Signs Date Time Temp Pulse Resp B/P (MAP) Pulse Ox O2 Delivery O2 Flow Rate FiO2 01/15/20 08:56 98.0 80 20 104/72 (83) 97 01/15/20 04:00 97.5 55 16 123/72 (89) 97 01/15/20 04:00 59 01/15/20 01:00 55 58 72 01/15/20 00:00 91 01/15/20 00:00 99.0 56 16 95/49 (64) 99 01/14/20 21:00 Room Air 01/14/20 20:00 98.8 64 18 111/66 (81) 100 01/14/20 20:00 69 01/14/20 16:18 69 69 75 01/14/20 16:00 98.0 69 20 110/67 (81) 99 01/14/20 15:33 76 01/14/20 12:00 97.9 60 20 112/64 (80) 99 01/14/20 11:50 56 Intake and Output 01/14/20 01/15/20 19:00 07:00 Intake Total 1430.000 ml 480 ml Output Total 2500 ml Balance 1430.000 ml -2020 ml Intake Oral 500 ml 480 ml IV Total 930.000 ml Output Urine Total 2500 ml # Voids 3 3 # Bowel Movements 1 Laboratory Tests 01/14/20 16:10: Ferritin 93, Troponin I 0.000 01/15/20 08:35: White Blood Count 8.4, Red Blood Count 3.33L, Hemoglobin 10.8L, Hematocrit 32.0L , Mean Corpuscular Volume 96, Mean Corpuscular Hemoglobin 32.6H, Mean Corpuscular Hemoglobin Concent 33.9, Red Cell Distribution Width 12.8, Platelet Count 222, Mean Platelet Volume 8.3, Neutrophils (%) (Auto) 69.1, Lymphocytes (% ) (Auto) 18.4L, Monocytes (%) (Auto) 11.1H, Eosinophils (%) (Auto) 0.7, Basophils (%) (Auto) 0.7, Sodium Level 138, Potassium Level 3.5, Chloride Level 103, Carbon Dioxide Level 27, Anion Gap 8, Blood Urea Nitrogen 7, Creatinine 1.0 , Estimat Glomerular Filtration Rate > 60, Glucose Level 108H, Calcium Level 8.2L Height (Feet): 5 Height (Inches): 9.00 Weight (Pounds): 146 General Appearance: lethargic EENT: normal ENT inspection Neck: normal alignment Cardiovascular: normal peripheral pulses, normal rate, regular rhythm Respiratory/Chest: chest wall non-tender, lungs clear, normal breath sounds Abdomen: normal bowel sounds, non tender, soft Extremities: normal inspection Edema: no edema noted Arm (L), no edema noted Arm (R), no edema noted Leg (L), no edema noted Leg (R), no edema noted Pedal (L), no edema noted Pedal (R), no edema noted Generalized Neurologic: motor weakness Skin: normal pigmentation, warm/dry Felton Bai DO Jan 15, 2020 09:15
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
--- NOTE | 2020-01-15 13:51 | Cardiac Electrophysiology PN ---
Assessment/Plan Assessment/Plan 1. Hypotension. Resolved. Ruled out for myocardial infarction. EKG is nonischemic. An echocardiogram showed normal left ventricular systolic function. 2. Presence of IVC filter. 3. History of pulmonary nodule. 4. Distal ulnar fracture. 5. Left hand laceration. Follow up by Dr. Jurado. DC Tele Subjective Subjective Feeling better with iv fluids and iv Abx Objective Last 24 Hour Vital Signs Date Time Temp Pulse Resp B/P (MAP) Pulse Ox O2 Delivery O2 Flow Rate FiO2 01/15/20 09:00 59 57 70 01/15/20 09:00 Room Air 01/15/20 08:56 98.0 80 20 104/72 (83) 97 01/15/20 04:00 97.5 55 16 123/72 (89) 97 01/15/20 04:00 59 01/15/20 01:00 55 58 72 01/15/20 00:00 91 01/15/20 00:00 99.0 56 16 95/49 (64) 99 01/14/20 21:00 Room Air 01/14/20 20:00 98.8 64 18 111/66 (81) 100 01/14/20 20:00 69 01/14/20 16:18 69 69 75 01/14/20 16:00 98.0 69 20 110/67 (81) 99 01/14/20 15:33 76 Intake and Output 01/14/20 01/15/20 19:00 07:00 Intake Total 1430.000 ml 480 ml Output Total 2500 ml Balance 1430.000 ml -2020 ml Intake Oral 500 ml 480 ml IV Total 930.000 ml Output Urine Total 2500 ml # Voids 3 3 # Bowel Movements 1 Laboratory Tests Test 01/14/20 16:10 01/15/20 08:35 01/15/20 13:00 Ferritin 93 NG/ML (8-388) Troponin I 0.000 ng/mL (0.000-0.056) White Blood Count 8.4 K/UL (4.8-10.8) Red Blood Count 3.33 M/UL (4.70-6.10) L Hemoglobin 10.8 G/DL (14.2-18.0) L Hematocrit 32.0 % (42.0-52.0) L Mean Corpuscular Volume 96 FL (80-99) Mean Corpuscular Hemoglobin 32.6 PG (27.0-31.0) H Mean Corpuscular Hemoglobin Concent 33.9 G/DL (32.0-36.0) Red Cell Distribution Width 12.8 % (11.6-14.8) Platelet Count 222 K/UL (150-450) Mean Platelet Volume 8.3 FL (6.5-10.1) Neutrophils (%) (Auto) 69.1 % (45.0-75.0) Lymphocytes (%) (Auto) 18.4 % (20.0-45.0) L Monocytes (%) (Auto) 11.1 % (1.0-10.0) H Eosinophils (%) (Auto) 0.7 % (0.0-3.0) Basophils (%) (Auto) 0.7 % (0.0-2.0) Sodium Level 138 MMOL/L (136-145) Potassium Level 3.5 MMOL/L (3.5-5.1) Chloride Level 103 MMOL/L (98-107) Carbon Dioxide Level 27 MMOL/L (21-32) Anion Gap 8 mmol/L (5-15) Blood Urea Nitrogen 7 mg/dL (7-18) Creatinine 1.0 MG/DL (0.55-1.30) Estimat Glomerular Filtration Rate > 60 mL/min (>60) Glucose Level 108 MG/DL (74-106) H Calcium Level 8.2 MG/DL (8.5-10.1) L Vancomycin Level Trough 10.7 ug/mL (5.0-12.0) Microbiology Date/Time Source Procedure Growth Status 01/14/20 13:25 Urine,Clean Catch Urine Culture - Preliminary NO GROWTH Resulted Objective HEAD AND NECK: Showed no JVD. LUNGS: Clear. CARDIOVASCULAR: Showed regular S1 and S2 with no gallop or murmur. ABDOMEN: Soft. EXTREMITIES: No pitting edema. Magdy Lane MD Jan 15, 2020 13:51
[2020-01-15] MEDS ORDERED: Vancomycin 1.5gm/NS Premix IVPB SCH (14:00)
[2020-01-15] MEDS: chlordiazePOXIDE 25mg Cap ORAL SCH ×2 (15:43→21:17)
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
[2020-01-15] MEDS: LORazepam 1mg tab ORAL PRN (15:54)
[2020-01-15] MEDS: Cephalexin 500mg cap ORAL SCH (18:23)
[2020-01-15] MEDS ORDERED: Iron Sucrose 100 MG in NS 55 ML IV SCH (21:00)
--- NOTE | 2020-01-15 23:31 | Initial Psychiatric Evaluation ---
Psychiatry Consultation Psychiatry Consultation Chief Complaint: Dizziness Allergies: Coded Allergies: No Known Allergies (Unverified , 01/13/20) Objective Data Height (Feet): 5 Height (Inches): 9.00 Weight (Pounds): 146 Miki Reyna MD Jan 15, 2020 23:31
[2020-01-16] VITALS (7 sets, daily range): BP systolic 111–137; BP diastolic 67–80
[2020-01-16] MEDS: Cephalexin 500mg cap ORAL SCH ×5 (00:20→23:07)
[2020-01-16] MEDS: chlordiazePOXIDE 25mg Cap ORAL SCH ×3 (05:03→21:31)
[2020-01-16 07:07] LABS: ANION GAP 9 mmol/L (5-15); BLOOD UREA NITROGEN 8 mg/dL (7-18); CALCIUM 8.7 MG/DL (8.5-10.1); CARBON DIOXIDE 27 MMOL/L (21-32); CHLORIDE 104 MMOL/L (98-107); CREATININE 0.8 MG/DL (0.55-1.30); POTASSIUM 3.7 MMOL/L (3.5-5.1); SODIUM 140 MMOL/L (136-145)
[2020-01-16 07:09] LABS: BASOPHILS % (AUTO) 0.8 % (0.0-2.0); EOSINOPHILS % (AUTO) 1.2 % (0.0-3.0); HEMATOCRIT 35.5 % (42.0-52.0); HEMOGLOBIN 11.9 G/DL (14.2-18.0); LYMPHOCYTES % (AUTO) 26.1 % (20.0-45.0); MEAN CORPUSCULAR VOLUME 96 FL (80-99); MONOCYTES % (AUTO) 12.4 % (1.0-10.0); NEUTROPHILS % (AUTO) 59.6 % (45.0-75.0); PLATELET COUNT 240 K/UL (150-450); RED CELL DISTRIBUTION WIDTH 12.6 % (11.6-14.8)
--- NOTE | 2020-01-16 07:16 | Hematology/Onc Progress Note ---
Assessment/Plan Assessment/Plan Assessment and Recs # Anemia is likely due to iron deficiency, r/o gi bleed -> anemia panel has been noted --> started on venofer 100mg iv daily x 5 days --> r/o gi bleeding --> no evidence of hemolysis --> hgb 11.9 # 0.4 cm nodule right upper lobe of uncertain etiology appeared --> ct of the chest w/o contrast --> can be done oiutpatient in next 6 months # Hypotension --> ivfs given --> ekg as per cards # Distal end of ulna fracture, closed --> per ortho # Aortic stent graft # Questionable ivc filter Appreciate consultation and dw RN Subjective Constitutional: Denies: no symptoms, chills, fever, malaise, weakness, other HEENT: Denies: no symptoms, eye pain, blurred vision, tearing, double vision, ear pain, ear discharge, nose pain, nose congestion, throat pain, throat swelling, mouth pain, mouth swelling, other Cardiovascular: Denies: no symptoms, chest pain, edema, irregular heart rate, lightheadedness, palpitations, syncope, other Respiratory: Denies: no symptoms, cough, shortness of breath, SOB with excertion, SOB at rest, sputum, wheezing, other Gastrointestinal/Abdominal: Denies: no symptoms, abdomen distended, abdominal pain, black stools, tarry stools, blood in stool, constipated, diarrhea, difficulty swallowing, nausea, poor appetite, poor fluid intake, rectal bleeding , vomiting, other Genitourinary: Denies: no symptoms, burning, discharge, frequency, flank pain, hematuria, incontinence, pain, urgency, other Neurologic/Psychiatric: Denies: no symptoms, anxiety, depressed, emotional problems, headache, numbness, paresthesia, pre-existing deficit, seizure, tingling, tremors, weakness, other Endocrine: Denies: no symptoms, excessive sweating, flushing, intolerance to cold, intolerance to heat, increased hunger, increased thirst, increased urine, unexplained weight gain, unexplained weight loss, other Allergies: Coded Allergies: No Known Allergies (Unverified , 01/13/20) Subjective 01/15 is easily upset and yelling, no bleeding, dw rn Objective Objective Current Medications Medications (Trade) Dose Ordered Sig/Shonda Route PRN Reason Start Time Stop Time Status Last Admin Dose Admin Cephalexin (Keflex) 500 mg Q6HR ORAL 01/15/20 18:00 01/22/20 17:59 01/16/20 05:03 Chlordiazepoxide (Librium) 25 mg EVERY 8 HOURS ORAL 01/15/20 15:00 01/22/20 14:59 01/16/20 05:03 Dextrose/Sodium Chloride 1,000 ml @ 60 mls/hr [id number] IV 01/14/20 09:30 02/13/20 09:29 01/15/20 02:01 Iron Sucrose 100 mg/Sodium Chloride 60 ml @ 240 mls/hr BEDTIME IV 01/15/20 21:00 01/19/20 21:14 01/15/20 21:17 Lorazepam (Ativan) 2 mg Q6H PRN ORAL anxiety 01/15/20 14:30 01/22/20 14:29 01/15/20 15:54 Thiamine HCl (Vitamin B1) 100 mg THREE TIMES A DAY ORAL 01/14/20 18:00 02/13/20 17:59 01/15/20 18:23 Last 24 Hour Vital Signs Date Time Temp Pulse Resp B/P (MAP) Pulse Ox O2 Delivery O2 Flow Rate FiO2 01/16/20 04:00 98.2 64 18 124/80 (95) 97 01/16/20 01:00 60 65 01/16/20 00:00 98.1 60 15 121/78 (92) 96 01/15/20 21:00 Room Air 01/15/20 20:00 97.9 57 17 102/66 (78) 96 01/15/20 17:00 64 67 74 01/15/20 16:24 65 18 127/63 98 01/15/20 16:00 98.9 65 18 127/63 (84) 98 01/15/20 15:54 65 18 127/63 98 01/15/20 12:00 64 01/15/20 12:00 99.3 58 20 118/76 (90) 99 01/15/20 09:00 59 57 70 01/15/20 09:00 Room Air 01/15/20 08:00 100.2 67 18 117/60 (79) 98 01/15/20 08:00 60 01/15/20 04:00 97.5 55 16 123/72 (89) 97 01/15/20 04:00 59 01/15/20 01:00 55 58 72 01/15/20 00:00 91 01/15/20 00:00 99.0 56 16 95/49 (64) 99 01/14/20 21:00 Room Air 01/14/20 20:00 98.8 64 18 111/66 (81) 100 01/14/20 20:00 69 01/14/20 16:18 69 69 75 01/14/20 16:00 98.0 69 20 110/67 (81) 99 01/14/20 15:33 76 01/14/20 12:00 97.9 60 20 112/64 (80) 99 01/14/20 11:50 56 01/14/20 09:00 Room Air 01/14/20 08:44 69 01/14/20 08:00 97.9 60 20 117/68 (84) 98 Intake and Output 01/15/20 01/16/20 19:00 07:00 Intake Total 480 ml 480 ml Output Total 2050 ml 800 ml Balance -1570 ml -320 ml Intake Oral 480 ml 480 ml Output Urine Total 2050 ml 800 ml # Voids 3 # Bowel Movements 2 Labs Test 01/13/20 17:10 01/13/20 17:50 01/13/20 18:40 01/14/20 08:55 Salicylates Level 2.9 ug/mL (2.8-20) White Blood Count 9.2 K/UL (4.8-10.8) Red Blood Count 3.29 M/UL (4.70-6.10) Hemoglobin 10.9 G/DL (14.2-18.0) Hematocrit 31.6 % (42.0-52.0) Mean Corpuscular Volume 96 FL (80-99) Mean Corpuscular Hemoglobin 33.1 PG (27.0-31.0) Mean Corpuscular Hemoglobin Concent 34.5 G/DL (32.0-36.0) Red Cell Distribution Width 12.6 % (11.6-14.8) Platelet Count 205 K/UL (150-450) Mean Platelet Volume 8.4 FL (6.5-10.1) Neutrophils (%) (Auto) 83.6 % (45.0-75.0) Lymphocytes (%) (Auto) 9.8 % (20.0-45.0) Monocytes (%) (Auto) 5.5 % (1.0-10.0) Eosinophils (%) (Auto) 0.2 % (0.0-3.0) Basophils (%) (Auto) 0.9 % (0.0-2.0) Prothrombin Time 11.1 SEC (9.30-11.50) Prothromb Time International Ratio 1.0 (0.9-1.1) Activated Partial Thromboplast Time 22 SEC (23-33) Sodium Level 137 MMOL/L (136-145) Potassium Level 4.2 MMOL/L (3.5-5.1) Chloride Level 103 MMOL/L (98-107) Carbon Dioxide Level 25 MMOL/L (21-32) Anion Gap 9 mmol/L (5-15) Blood Urea Nitrogen 11 mg/dL (7-18) Creatinine 0.8 MG/DL (0.55-1.30) Estimat Glomerular Filtration Rate > 60 mL/min (>60) Glucose Level 118 MG/DL (74-106) Calcium Level 8.1 MG/DL (8.5-10.1) Total Bilirubin 0.8 MG/DL (0.2-1.0) Aspartate Amino Transf (AST/SGOT) 26 U/L (15-37) Alanine Aminotransferase (ALT/SGPT) 20 U/L (12-78) Alkaline Phosphatase 60 U/L (46-116) Total Creatine Kinase 125 U/L (26-308) Troponin I 0.011 ng/mL (0.000-0.056) 0.000 ng/mL (0.000-0.056) Total Protein 5.9 G/DL (6.4-8.2) Albumin 3.3 G/DL (3.4-5.0) Globulin 2.6 g/dL Albumin/Globulin Ratio 1.3 (1.0-2.7) Thyroid Stimulating Hormone (TSH) 0.664 uiU/mL (0.358-3.740) Acetaminophen Level < 2 MCG/ML (10-30) Serum Alcohol 5 mg/dL Urine Color Yellow Urine Appearance Slightly cloudy Urine pH 6.5 (4.5-8.0) Urine Specific [place] 1.015 (1.005-1.035) Urine Protein 2+ (NEGATIVE) Urine Glucose (UA) Negative (NEGATIVE) Urine Ketones 2+ (NEGATIVE) Urine Blood Negative (NEGATIVE) Urine Nitrite Negative (NEGATIVE) Urine Bilirubin 1+ (NEGATIVE) Urine Ictotest Negative (NEGATIVE) Urine Urobilinogen 8 MG/DL (0.0-1.0) Urine Leukocyte Esterase 1+ (NEGATIVE) Urine RBC 0 /HPF (0 - 0) Urine WBC 5-10 /HPF (0 - 0) Urine Squamous Epithelial Cells None /LPF (NONE/OCC) Urine Amorphous Sediment Moderate /LPF (NONE) Urine Bacteria Few /HPF (NONE) Urine Opiates Screen Negative (NEGATIVE) Urine Barbiturates Screen Negative (NEGATIVE) Phencyclidine (PCP) Screen Negative (NEGATIVE) Urine Amphetamines Screen Negative (NEGATIVE) Urine Benzodiazepines Screen Negative (NEGATIVE) Urine Cocaine Screen Negative (NEGATIVE) Urine Marijuana (THC) Screen Positive (NEGATIVE) Test 01/14/20 16:10 01/15/20 08:35 01/15/20 13:00 01/16/20 06:21 Ferritin 93 NG/ML (8-388) Troponin I 0.000 ng/mL (0.000-0.056) White Blood Count 8.4 K/UL (4.8-10.8) 8.0 K/UL (4.8-10.8) Red Blood Count 3.33 M/UL (4.70-6.10) 3.70 M/UL (4.70-6.10) Hemoglobin 10.8 G/DL (14.2-18.0) 11.9 G/DL (14.2-18.0) Hematocrit 32.0 % (42.0-52.0) 35.5 % (42.0-52.0) Mean Corpuscular Volume 96 FL (80-99) 96 FL (80-99) Mean Corpuscular Hemoglobin 32.6 PG (27.0-31.0) 32.0 PG (27.0-31.0) Mean Corpuscular Hemoglobin Concent 33.9 G/DL (32.0-36.0) 33.4 G/DL (32.0-36.0) Red Cell Distribution Width 12.8 % (11.6-14.8) 12.6 % (11.6-14.8) Platelet Count 222 K/UL (150-450) 240 K/UL (150-450) Mean Platelet Volume 8.3 FL (6.5-10.1) 8.4 FL (6.5-10.1) Neutrophils (%) (Auto) 69.1 % (45.0-75.0) 59.6 % (45.0-75.0) Lymphocytes (%) (Auto) 18.4 % (20.0-45.0) 26.1 % (20.0-45.0) Monocytes (%) (Auto) 11.1 % (1.0-10.0) 12.4 % (1.0-10.0) Eosinophils (%) (Auto) 0.7 % (0.0-3.0) 1.2 % (0.0-3.0) Basophils (%) (Auto) 0.7 % (0.0-2.0) 0.8 % (0.0-2.0) Sodium Level 138 MMOL/L (136-145) 140 MMOL/L (136-145) Potassium Level 3.5 MMOL/L (3.5-5.1) 3.7 MMOL/L (3.5-5.1) Chloride Level 103 MMOL/L (98-107) 104 MMOL/L (98-107) Carbon Dioxide Level 27 MMOL/L (21-32) 27 MMOL/L (21-32) Anion Gap 8 mmol/L (5-15) 9 mmol/L (5-15) Blood Urea Nitrogen 7 mg/dL (7-18) 8 mg/dL (7-18) Creatinine 1.0 MG/DL (0.55-1.30) 0.8 MG/DL (0.55-1.30) Estimat Glomerular Filtration Rate > 60 mL/min (>60) > 60 mL/min (>60) Glucose Level 108 MG/DL (74-106) 99 MG/DL (74-106) Calcium Level 8.2 MG/DL (8.5-10.1) 8.7 MG/DL (8.5-10.1) Vancomycin Level Trough 10.7 ug/mL (5.0-12.0) Height (Feet): 5 Height (Inches): 9.00 Weight (Pounds): 142 Objective Physical Exam General: no apparent distress, alert, GCS 15, non-toxic HEENT: hearing grossly normal, normal pharynx, no angioedema, normal voice Neck: full range of motion, supple/symm/no masses Resp: chest non-tender, lungs clear, normal breath sounds, no rhonchi, no respiratory distress, no retraction, speaking full sentences Cardi: regular rate, rhythm, no edema, no murmur Gastrointestinal: normal bowel sounds, non tender, soft, non-distended, no guarding, no rebound Genit: no CVA tenderness Musculoskeletal: back normal, digits/nails normal, no calf tenderness Govind Pineda MD Jan 16, 2020 07:15
[2020-01-16] MEDS: Thiamine 100mg tab ORAL SCH ×3 (09:13→17:30)
[2020-01-16] MEDS: LORazepam 1mg tab ORAL PRN ×2 (09:13→17:39)
[2020-01-16] MEDS: D5 1/2NS 1,000 ML IV SCH ×2 (09:14→17:30)
--- NOTE | 2020-01-16 09:15 | Consultation ---
Ed Bruce MD Jan 16, 2020 09:15
--- NOTE | 2020-01-16 13:42 | General Progress Note ---
Assessment/Plan Problem List: (1) UTI (urinary tract infection) ICD Codes: N39.0 - Urinary tract infection, site not specified SNOMED: 65179067 (2) Pre-syncope ICD Codes: R55 - Syncope and collapse SNOMED: 510618270 (3) Drug abuse ICD Codes: F19.10 - Other psychoactive substance abuse, uncomplicated SNOMED: 13079315 (4) Malnutrition ICD Codes: E46 - Unspecified protein-calorie malnutrition SNOMED: 21465756 (5) Anemia ICD Codes: D64.9 - Anemia, unspecified SNOMED: 809812215 (6) Dizziness ICD Codes: R42 - Dizziness and giddiness SNOMED: 790140249, 607374434 (7) Hypotension ICD Codes: I95.9 - Hypotension, unspecified SNOMED: 61370969 Status: unchanged Assessment/Plan: abx detox neuro f/u cbc bmp am dc plan if clear Subjective Constitutional: Reports: weakness Allergies: Coded Allergies: No Known Allergies (Unverified , 01/13/20) All Systems: reviewed and negative except above Subjective calm in bed sleepy Objective Last 24 Hour Vital Signs Date Time Temp Pulse Resp B/P (MAP) Pulse Ox O2 Delivery O2 Flow Rate FiO2 01/16/20 09:43 65 20 116/73 96 01/16/20 09:13 76 20 137/77 95 01/16/20 08:52 97.9 76 20 137/77 (97) 95 01/16/20 08:51 Room Air 01/16/20 04:00 98.2 64 18 124/80 (95) 97 01/16/20 01:00 60 65 01/16/20 00:00 98.1 60 15 121/78 (92) 96 01/15/20 21:00 Room Air 01/15/20 20:00 97.9 57 17 102/66 (78) 96 01/15/20 17:00 64 67 74 01/15/20 16:00 98.9 65 18 127/63 (84) 98 01/15/20 15:54 65 18 127/63 98 Intake and Output 01/15/20 01/16/20 19:00 07:00 Intake Total 480 ml 480 ml Output Total 2050 ml 800 ml Balance -1570 ml -320 ml Intake Oral 480 ml 480 ml Output Urine Total 2050 ml 800 ml # Voids 3 # Bowel Movements 2 Laboratory Tests 01/16/20 06:21: White Blood Count 8.0, Red Blood Count 3.70L, Hemoglobin 11.9L, Hematocrit 35.5L , Mean Corpuscular Volume 96, Mean Corpuscular Hemoglobin 32.0H, Mean Corpuscular Hemoglobin Concent 33.4, Red Cell Distribution Width 12.6, Platelet Count 240, Mean Platelet Volume 8.4, Neutrophils (%) (Auto) 59.6, Lymphocytes (% ) (Auto) 26.1, Monocytes (%) (Auto) 12.4H, Eosinophils (%) (Auto) 1.2, Basophils (%) (Auto) 0.8, Sodium Level 140, Potassium Level 3.7, Chloride Level 104, Carbon Dioxide Level 27, Anion Gap 9, Blood Urea Nitrogen 8, Creatinine 0.8 , Estimat Glomerular Filtration Rate > 60, Glucose Level 99, Calcium Level 8.7 Height (Feet): 5 Height (Inches): 9.00 Weight (Pounds): 142 General Appearance: lethargic EENT: normal ENT inspection Neck: normal alignment Cardiovascular: normal peripheral pulses, normal rate, regular rhythm Respiratory/Chest: chest wall non-tender, lungs clear, normal breath sounds Abdomen: normal bowel sounds, non tender, soft Extremities: normal inspection Edema: no edema noted Arm (L), no edema noted Arm (R), no edema noted Leg (L), no edema noted Leg (R), no edema noted Pedal (L), no edema noted Pedal (R), no edema noted Generalized Neurologic: motor weakness Skin: normal pigmentation, warm/dry Felton Bai DO Jan 16, 2020 13:42
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
--- NOTE | 2020-01-16 14:01 | Cardiac Electrophysiology PN ---
Assessment/Plan Assessment/Plan 1. Hypotension. Resolved. Ruled out for myocardial infarction. EKG is nonischemic. An echocardiogram showed normal left ventricular systolic function. 2. Presence of IVC filter. 3. History of pulmonary nodule. 4. Distal ulnar fracture. 5. Left hand laceration. Follow up by Dr. Jurado. DC Tele Transfer to [facility] [place] Subjective Subjective Feeling better with iv fluids and iv Abx. Transfer to [facility] [place] pending Objective Last 24 Hour Vital Signs Date Time Temp Pulse Resp B/P (MAP) Pulse Ox O2 Delivery O2 Flow Rate FiO2 01/16/20 09:43 65 20 116/73 96 01/16/20 09:13 76 20 137/77 95 01/16/20 08:52 97.9 76 20 137/77 (97) 95 01/16/20 08:51 Room Air 01/16/20 04:00 98.2 64 18 124/80 (95) 97 01/16/20 01:00 60 65 01/16/20 00:00 98.1 60 15 121/78 (92) 96 01/15/20 21:00 Room Air 01/15/20 20:00 97.9 57 17 102/66 (78) 96 01/15/20 17:00 64 67 74 01/15/20 16:00 98.9 65 18 127/63 (84) 98 01/15/20 15:54 65 18 127/63 98 Intake and Output 01/15/20 01/16/20 19:00 07:00 Intake Total 480 ml 480 ml Output Total 2050 ml 800 ml Balance -1570 ml -320 ml Intake Oral 480 ml 480 ml Output Urine Total 2050 ml 800 ml # Voids 3 # Bowel Movements 2 Laboratory Tests Test 01/16/20 06:21 White Blood Count 8.0 K/UL (4.8-10.8) Red Blood Count 3.70 M/UL (4.70-6.10) L Hemoglobin 11.9 G/DL (14.2-18.0) L Hematocrit 35.5 % (42.0-52.0) L Mean Corpuscular Volume 96 FL (80-99) Mean Corpuscular Hemoglobin 32.0 PG (27.0-31.0) H Mean Corpuscular Hemoglobin Concent 33.4 G/DL (32.0-36.0) Red Cell Distribution Width 12.6 % (11.6-14.8) Platelet Count 240 K/UL (150-450) Mean Platelet Volume 8.4 FL (6.5-10.1) Neutrophils (%) (Auto) 59.6 % (45.0-75.0) Lymphocytes (%) (Auto) 26.1 % (20.0-45.0) Monocytes (%) (Auto) 12.4 % (1.0-10.0) H Eosinophils (%) (Auto) 1.2 % (0.0-3.0) Basophils (%) (Auto) 0.8 % (0.0-2.0) Sodium Level 140 MMOL/L (136-145) Potassium Level 3.7 MMOL/L (3.5-5.1) Chloride Level 104 MMOL/L (98-107) Carbon Dioxide Level 27 MMOL/L (21-32) Anion Gap 9 mmol/L (5-15) Blood Urea Nitrogen 8 mg/dL (7-18) Creatinine 0.8 MG/DL (0.55-1.30) Estimat Glomerular Filtration Rate > 60 mL/min (>60) Glucose Level 99 MG/DL (74-106) Calcium Level 8.7 MG/DL (8.5-10.1) Microbiology Date/Time Source Procedure Growth Status 01/14/20 16:25 Blood Blood Culture - Preliminary NO GROWTH AFTER 24 HOURS Resulted 01/14/20 16:10 Blood Blood Culture - Preliminary NO GROWTH AFTER 24 HOURS Resulted 01/14/20 13:25 Urine,Clean Catch Urine Culture - Preliminary NO GROWTH AFTER 24 HOURS Resulted Objective HEAD AND NECK: Showed no JVD. LUNGS: Clear. CARDIOVASCULAR: Showed regular S1 and S2 with no gallop or murmur. ABDOMEN: Soft. EXTREMITIES: No pitting edema. Magdy Lane MD Jan 16, 2020 14:01
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
[2020-01-16] MEDS ORDERED: Iron Sucrose 100 MG in NS 55 ML IV SCH (21:00)
[2020-01-16] MEDS: Depakote 500mg tab ORAL SCH (23:00)
[2020-01-17] MEDS: LORazepam 1mg tab ORAL PRN ×2 (00:29→09:17)
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
[2020-01-17 04:00] VITALS: BP 125/53
[2020-01-17] MEDS: Cephalexin 500mg cap ORAL SCH ×2 (06:29→11:55)
[2020-01-17] MEDS: chlordiazePOXIDE 25mg Cap ORAL SCH ×2 (06:29→14:03)
--- NOTE | 2020-01-17 07:07 | Hematology/Onc Progress Note ---
Assessment/Plan Assessment/Plan Assessment and Recs # Anemia is likely due to iron deficiency, r/o gi bleed -> anemia panel has been noted --> started on venofer 100mg iv daily x 5 days --> r/o gi bleeding --> no evidence of hemolysis --> hgb 11.9 # 0.4 cm nodule right upper lobe of uncertain etiology appeared --> ct of the chest w/o contrast --> can be done oiutpatient in next 6 months # Hypotension --> ivfs given --> ekg as per cards # Distal end of ulna fracture, closed --> per ortho # Aortic stent graft # Questionable ivc filter Appreciate consultation and wes RN Subjective Constitutional: Denies: no symptoms, chills, fever, malaise, weakness, other HEENT: Denies: no symptoms, eye pain, blurred vision, tearing, double vision, ear pain, ear discharge, nose pain, nose congestion, throat pain, throat swelling, mouth pain, mouth swelling, other Cardiovascular: Denies: no symptoms, chest pain, edema, irregular heart rate, lightheadedness, palpitations, syncope, other Gastrointestinal/Abdominal: Denies: no symptoms, abdomen distended, abdominal pain, black stools, tarry stools, blood in stool, constipated, diarrhea, difficulty swallowing, nausea, poor appetite, poor fluid intake, rectal bleeding , vomiting, other Genitourinary: Denies: no symptoms, burning, discharge, frequency, flank pain, hematuria, incontinence, pain, urgency, other Neurologic/Psychiatric: Denies: no symptoms, anxiety, depressed, emotional problems, headache, numbness, paresthesia, pre-existing deficit, seizure, tingling, tremors, weakness, other Endocrine: Denies: no symptoms, excessive sweating, flushing, intolerance to cold, intolerance to heat, increased hunger, increased thirst, increased urine, unexplained weight gain, unexplained weight loss, other Allergies: Coded Allergies: No Known Allergies (Unverified , 01/13/20) Subjective 01/15 is easily upset and yelling, no bleeding, dw rn 01/16 no new events, wes rn, still agitated in the am, labs pending Objective Objective Current Medications Medications (Trade) Dose Ordered Sig/Shonda Route PRN Reason Start Time Stop Time Status Last Admin Dose Admin Cephalexin (Keflex) 500 mg Q6HR ORAL 01/16/20 18:00 01/22/20 17:59 01/17/20 06:29 Chlordiazepoxide (Librium) 25 mg EVERY 8 HOURS ORAL 01/16/20 22:00 01/22/20 14:59 01/17/20 06:29 Dextrose/Sodium Chloride 1,000 ml @ 60 mls/hr [id number] IV 01/16/20 17:30 02/13/20 09:29 Divalproex Sodium (Depakote) 500 mg EVERY 12 HOURS ORAL 01/16/20 23:00 02/15/20 22:59 Iron Sucrose 100 mg/Sodium Chloride 60 ml @ 240 mls/hr BEDTIME IV 01/16/20 21:00 01/19/20 21:14 01/16/20 20:48 Lorazepam (Ativan) 2 mg Q6H PRN ORAL anxiety 01/16/20 17:22 01/23/20 17:21 01/17/20 00:29 Thiamine HCl (Vitamin B1) 100 mg THREE TIMES A DAY ORAL 01/16/20 18:00 02/13/20 17:59 01/16/20 17:30 Last 24 Hour Vital Signs Date Time Temp Pulse Resp B/P (MAP) Pulse Ox O2 Delivery O2 Flow Rate FiO2 01/17/20 04:00 98.1 70 20 125/53 (77) 96 01/17/20 00:59 70 18 111/69 98 01/17/20 00:30 71 01/17/20 00:29 71 18 116/71 97 01/16/20 23:13 97.7 69 20 115/72 (86) 98 01/16/20 20:33 98.6 68 20 111/67 (82) 96 01/16/20 20:12 Room Air 01/16/20 17:39 68 20 111/67 96 01/16/20 17:00 69 71 70 01/16/20 16:00 98.6 68 20 111/67 (82) 96 01/16/20 12:00 96.5 65 20 116/73 (87) 96 01/16/20 09:43 65 20 116/73 96 01/16/20 09:13 76 20 137/77 95 01/16/20 09:00 68 65 6 01/16/20 08:52 97.9 76 20 137/77 (97) 95 01/16/20 08:51 Room Air 01/16/20 04:00 98.2 64 18 124/80 (95) 97 01/16/20 01:00 60 65 01/16/20 00:00 98.1 60 15 121/78 (92) 96 01/15/20 21:00 Room Air 01/15/20 20:00 97.9 57 17 102/66 (78) 96 01/15/20 17:00 64 67 74 01/15/20 16:00 98.9 65 18 127/63 (84) 98 01/15/20 15:54 65 18 127/63 98 01/15/20 12:00 64 01/15/20 12:00 99.3 58 20 118/76 (90) 99 01/15/20 09:00 59 57 70 01/15/20 09:00 Room Air 01/15/20 08:00 100.2 67 18 117/60 (79) 98 01/15/20 08:00 60 Intake and Output 01/16/20 01/17/20 19:00 07:00 Intake Total 1280 ml 700 ml Output Total 700 ml Balance 580 ml 700 ml Intake Oral 1280 ml 700 ml Output Urine Total 700 ml # Voids 3 Labs Test 01/14/20 08:55 01/14/20 16:10 01/15/20 08:35 01/15/20 13:00 Troponin I 0.000 ng/mL (0.000-0.056) 0.000 ng/mL (0.000-0.056) Ferritin 93 NG/ML (8-388) White Blood Count 8.4 K/UL (4.8-10.8) Red Blood Count 3.33 M/UL (4.70-6.10) Hemoglobin 10.8 G/DL (14.2-18.0) Hematocrit 32.0 % (42.0-52.0) Mean Corpuscular Volume 96 FL (80-99) Mean Corpuscular Hemoglobin 32.6 PG (27.0-31.0) Mean Corpuscular Hemoglobin Concent 33.9 G/DL (32.0-36.0) Red Cell Distribution Width 12.8 % (11.6-14.8) Platelet Count 222 K/UL (150-450) Mean Platelet Volume 8.3 FL (6.5-10.1) Neutrophils (%) (Auto) 69.1 % (45.0-75.0) Lymphocytes (%) (Auto) 18.4 % (20.0-45.0) Monocytes (%) (Auto) 11.1 % (1.0-10.0) Eosinophils (%) (Auto) 0.7 % (0.0-3.0) Basophils (%) (Auto) 0.7 % (0.0-2.0) Sodium Level 138 MMOL/L (136-145) Potassium Level 3.5 MMOL/L (3.5-5.1) Chloride Level 103 MMOL/L (98-107) Carbon Dioxide Level 27 MMOL/L (21-32) Anion Gap 8 mmol/L (5-15) Blood Urea Nitrogen 7 mg/dL (7-18) Creatinine 1.0 MG/DL (0.55-1.30) Estimat Glomerular Filtration Rate > 60 mL/min (>60) Glucose Level 108 MG/DL (74-106) Calcium Level 8.2 MG/DL (8.5-10.1) Vancomycin Level Trough 10.7 ug/mL (5.0-12.0) Test 01/16/20 06:21 01/16/20 20:43 White Blood Count 8.0 K/UL (4.8-10.8) Red Blood Count 3.70 M/UL (4.70-6.10) Hemoglobin 11.9 G/DL (14.2-18.0) Hematocrit 35.5 % (42.0-52.0) Mean Corpuscular Volume 96 FL (80-99) Mean Corpuscular Hemoglobin 32.0 PG (27.0-31.0) Mean Corpuscular Hemoglobin Concent 33.4 G/DL (32.0-36.0) Red Cell Distribution Width 12.6 % (11.6-14.8) Platelet Count 240 K/UL (150-450) Mean Platelet Volume 8.4 FL (6.5-10.1) Neutrophils (%) (Auto) 59.6 % (45.0-75.0) Lymphocytes (%) (Auto) 26.1 % (20.0-45.0) Monocytes (%) (Auto) 12.4 % (1.0-10.0) Eosinophils (%) (Auto) 1.2 % (0.0-3.0) Basophils (%) (Auto) 0.8 % (0.0-2.0) Sodium Level 140 MMOL/L (136-145) Potassium Level 3.7 MMOL/L (3.5-5.1) Chloride Level 104 MMOL/L (98-107) Carbon Dioxide Level 27 MMOL/L (21-32) Anion Gap 9 mmol/L (5-15) Blood Urea Nitrogen 8 mg/dL (7-18) Creatinine 0.8 MG/DL (0.55-1.30) Estimat Glomerular Filtration Rate > 60 mL/min (>60) Glucose Level 99 MG/DL (74-106) Calcium Level 8.7 MG/DL (8.5-10.1) Height (Feet): 5 Height (Inches): 9.00 Weight (Pounds): 142 Objective Physical Exam General: no apparent distress, alert, GCS 15, non-toxic HEENT: hearing grossly normal, normal pharynx, no angioedema, normal voice Neck: full range of motion, supple/symm/no masses Resp: chest non-tender, lungs clear, normal breath sounds, no rhonchi, no respiratory distress, no retraction, speaking full sentences Cardi: regular rate, rhythm, no edema, no murmur Gastrointestinal: normal bowel sounds, non tender, soft, non-distended, no guarding, no rebound Genit: no CVA tenderness Musculoskeletal: back normal, digits/nails normal, no calf tenderness Gvoind Pineda MD Jan 17, 2020 07:07
--- NOTE | 2020-01-17 08:55 | General Progress Note ---
Assessment/Plan Problem List: (1) UTI (urinary tract infection) ICD Codes: N39.0 - Urinary tract infection, site not specified SNOMED: 64510165 (2) Pre-syncope ICD Codes: R55 - Syncope and collapse SNOMED: 466425079 (3) Drug abuse ICD Codes: F19.10 - Other psychoactive substance abuse, uncomplicated SNOMED: 81800514 (4) Malnutrition ICD Codes: E46 - Unspecified protein-calorie malnutrition SNOMED: 81613376 (5) Anemia ICD Codes: D64.9 - Anemia, unspecified SNOMED: 006889036 (6) Dizziness ICD Codes: R42 - Dizziness and giddiness SNOMED: 939356413, 499922647 (7) Hypotension ICD Codes: I95.9 - Hypotension, unspecified SNOMED: 40147176 Status: stable, progressing Assessment/Plan: abx detox neuro f/u dc if clear Subjective Constitutional: Reports: weakness Allergies: Coded Allergies: No Known Allergies (Unverified , 01/13/20) All Systems: reviewed and negative except above Subjective sl agitated Objective Last 24 Hour Vital Signs Date Time Temp Pulse Resp B/P (MAP) Pulse Ox O2 Delivery O2 Flow Rate FiO2 01/17/20 04:00 98.1 70 20 125/53 (77) 96 01/17/20 00:59 70 18 111/69 98 01/17/20 00:30 71 01/17/20 00:29 71 18 116/71 97 01/16/20 23:13 97.7 69 20 115/72 (86) 98 01/16/20 20:33 98.6 68 20 111/67 (82) 96 01/16/20 20:12 Room Air 01/16/20 17:39 68 20 111/67 96 01/16/20 17:00 69 71 70 01/16/20 16:00 98.6 68 20 111/67 (82) 96 01/16/20 12:00 96.5 65 20 116/73 (87) 96 01/16/20 09:43 65 20 116/73 96 01/16/20 09:13 76 20 137/77 95 01/16/20 09:00 68 65 6 Intake and Output 01/16/20 01/17/20 19:00 07:00 Intake Total 1280 ml 700 ml Output Total 700 ml Balance 580 ml 700 ml Intake Oral 1280 ml 700 ml Output Urine Total 700 ml # Voids 3 Laboratory Tests 01/16/20 20:43: Stool Occult Blood [Pending] Height (Feet): 5 Height (Inches): 9.00 Weight (Pounds): 142 General Appearance: alert EENT: normal ENT inspection Neck: normal alignment Cardiovascular: normal peripheral pulses, normal rate, regular rhythm Respiratory/Chest: chest wall non-tender, lungs clear, normal breath sounds Abdomen: normal bowel sounds, non tender, soft Extremities: normal inspection Edema: no edema noted Arm (L), no edema noted Arm (R), no edema noted Leg (L), no edema noted Leg (R), no edema noted Pedal (L), no edema noted Pedal (R), no edema noted Generalized Neurologic: responsive, motor weakness Skin: normal pigmentation, warm/dry Felton Bai DO Jan 17, 2020 08:55
[2020-01-17] MEDS: Depakote 500mg tab ORAL SCH (09:00)
[2020-01-17] MEDS: Thiamine 100mg tab ORAL SCH ×2 (09:19→12:46)
[2020-01-17 10:05] LABS: ANION GAP 9 mmol/L (5-15); BLOOD UREA NITROGEN 11 mg/dL (7-18); CALCIUM 8.8 MG/DL (8.5-10.1); CARBON DIOXIDE 27 MMOL/L (21-32); CHLORIDE 106 MMOL/L (98-107); CREATININE 0.8 MG/DL (0.55-1.30); POTASSIUM 3.9 MMOL/L (3.5-5.1); SODIUM 142 MMOL/L (136-145)
[2020-01-17] MEDS: D5 1/2NS 1,000 ML IV SCH (10:10)
[2020-01-17 10:23] LABS: BASOPHILS % (AUTO) 0.9 % (0.0-2.0); EOSINOPHILS % (AUTO) 1.3 % (0.0-3.0); HEMATOCRIT 35.6 % (42.0-52.0); HEMOGLOBIN 11.9 G/DL (14.2-18.0); LYMPHOCYTES % (AUTO) 27.1 % (20.0-45.0); MEAN CORPUSCULAR VOLUME 96 FL (80-99); MONOCYTES % (AUTO) 9.9 % (1.0-10.0); NEUTROPHILS % (AUTO) 60.8 % (45.0-75.0); PLATELET COUNT 286 K/UL (150-450); RED BLOOD COUNT 3.71 M/UL (4.70-6.10); RED CELL DISTRIBUTION WIDTH 12.9 % (11.6-14.8); WHITE BLOOD COUNT 7.3 K/UL (4.8-10.8)
[2020-01-17] MEDS ORDERED: CEPHALEXIN500 MG ORAL (11:12)
[2020-01-17 12:00] VITALS: BP 130/76
--- NOTE | 2020-01-17 12:14 | Cardiac Electrophysiology PN ---
Assessment/Plan Assessment/Plan 1. Hypotension. Resolved. Ruled out for myocardial infarction. EKG is nonischemic. Echocardiogram showed normal left ventricular systolic function. 2. Presence of IVC filter. 3. History of pulmonary nodule. 4. Distal ulnar fracture. 5. Left hand laceration. Follow up by Dr. Jurado. DC to Board and care pending Subjective Subjective Feeling better with iv fluids and iv Abx. Transferred to [facility]. Refusing vital signs. Board and care placement pending Objective Last 24 Hour Vital Signs Date Time Temp Pulse Resp B/P (MAP) Pulse Ox O2 Delivery O2 Flow Rate FiO2 01/17/20 09:00 Room Air 01/17/20 04:00 98.1 70 20 125/53 (77) 96 01/17/20 00:59 70 18 111/69 98 01/17/20 00:30 71 01/17/20 00:29 71 18 116/71 97 01/16/20 23:13 97.7 69 20 115/72 (86) 98 01/16/20 20:33 98.6 68 20 111/67 (82) 96 01/16/20 20:12 Room Air 01/16/20 17:39 68 20 111/67 96 01/16/20 17:00 69 71 70 01/16/20 16:00 98.6 68 20 111/67 (82) 96 Intake and Output 01/16/20 01/17/20 19:00 07:00 Intake Total 1280 ml 700 ml Output Total 700 ml Balance 580 ml 700 ml Intake Oral 1280 ml 700 ml Output Urine Total 700 ml # Voids 3 Laboratory Tests Test 01/16/20 20:43 01/17/20 08:45 Stool Occult Blood Pending White Blood Count 7.3 K/UL (4.8-10.8) Red Blood Count 3.71 M/UL (4.70-6.10) L Hemoglobin 11.9 G/DL (14.2-18.0) L Hematocrit 35.6 % (42.0-52.0) L Mean Corpuscular Volume 96 FL (80-99) Mean Corpuscular Hemoglobin 32.1 PG (27.0-31.0) H Mean Corpuscular Hemoglobin Concent 33.4 G/DL (32.0-36.0) Red Cell Distribution Width 12.9 % (11.6-14.8) Platelet Count 286 K/UL (150-450) Mean Platelet Volume 7.6 FL (6.5-10.1) Neutrophils (%) (Auto) 60.8 % (45.0-75.0) Lymphocytes (%) (Auto) 27.1 % (20.0-45.0) Monocytes (%) (Auto) 9.9 % (1.0-10.0) Eosinophils (%) (Auto) 1.3 % (0.0-3.0) Basophils (%) (Auto) 0.9 % (0.0-2.0) Sodium Level 142 MMOL/L (136-145) Potassium Level 3.9 MMOL/L (3.5-5.1) Chloride Level 106 MMOL/L (98-107) Carbon Dioxide Level 27 MMOL/L (21-32) Anion Gap 9 mmol/L (5-15) Blood Urea Nitrogen 11 mg/dL (7-18) Creatinine 0.8 MG/DL (0.55-1.30) Estimat Glomerular Filtration Rate > 60 mL/min (>60) Glucose Level 92 MG/DL (74-106) Calcium Level 8.8 MG/DL (8.5-10.1) Microbiology Date/Time Source Procedure Growth Status 01/14/20 16:25 Blood Blood Culture - Preliminary NO GROWTH AFTER 48 HOURS Resulted 01/14/20 16:10 Blood Blood Culture - Preliminary NO GROWTH AFTER 48 HOURS Resulted 01/14/20 13:25 Urine,Clean Catch Urine Culture - Final NO GROWTH AFTER 48 HOURS Complete Objective HEAD AND NECK: Showed no JVD. LUNGS: Clear. CARDIOVASCULAR: Showed regular S1 and S2 with no gallop or murmur. ABDOMEN: Soft. EXTREMITIES: No pitting edema. Magdy Lane MD Jan 17, 2020 12:14
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
--- NOTE | 2020-01-17 18:37 | Surgery Progress Note ---
Surgery Progress Note Subjective Symptoms: improved, pain absent, tolerating diet, voiding well, passing flatus , BM Objective Last 24 Hour Vital Signs Date Time Temp Pulse Resp B/P (MAP) Pulse Ox O2 Delivery O2 Flow Rate FiO2 01/17/20 12:00 98.0 80 20 130/76 (94) 100 01/17/20 09:00 Room Air 01/17/20 04:00 98.1 70 20 125/53 (77) 96 01/17/20 00:59 70 18 111/69 98 01/17/20 00:30 71 01/17/20 00:29 71 18 116/71 97 01/16/20 23:13 97.7 69 20 115/72 (86) 98 01/16/20 20:33 98.6 68 20 111/67 (82) 96 01/16/20 20:12 Room Air I&O Intake and Output 01/16/20 01/17/20 19:00 07:00 Intake Total 1280 ml 700 ml Output Total 700 ml Balance 580 ml 700 ml Intake Oral 1280 ml 700 ml Output Urine Total 700 ml # Voids 3 Dressing: dry Wound: clean Cardiovascular: RSR Respiratory: clear Abdomen: soft, non-tender, present bowel sounds Extremities: no edema, no tenderness, no cyanosis, pulses, other Laboratory Tests Test 01/16/20 20:43 01/17/20 08:45 Stool Occult Blood Negative (NEGATIVE) White Blood Count 7.3 K/UL (4.8-10.8) Red Blood Count 3.71 M/UL (4.70-6.10) L Hemoglobin 11.9 G/DL (14.2-18.0) L Hematocrit 35.6 % (42.0-52.0) L Mean Corpuscular Volume 96 FL (80-99) Mean Corpuscular Hemoglobin 32.1 PG (27.0-31.0) H Mean Corpuscular Hemoglobin Concent 33.4 G/DL (32.0-36.0) Red Cell Distribution Width 12.9 % (11.6-14.8) Platelet Count 286 K/UL (150-450) Mean Platelet Volume 7.6 FL (6.5-10.1) Neutrophils (%) (Auto) 60.8 % (45.0-75.0) Lymphocytes (%) (Auto) 27.1 % (20.0-45.0) Monocytes (%) (Auto) 9.9 % (1.0-10.0) Eosinophils (%) (Auto) 1.3 % (0.0-3.0) Basophils (%) (Auto) 0.9 % (0.0-2.0) Sodium Level 142 MMOL/L (136-145) Potassium Level 3.9 MMOL/L (3.5-5.1) Chloride Level 106 MMOL/L (98-107) Carbon Dioxide Level 27 MMOL/L (21-32) Anion Gap 9 mmol/L (5-15) Blood Urea Nitrogen 11 mg/dL (7-18) Creatinine 0.8 MG/DL (0.55-1.30) Estimat Glomerular Filtration Rate > 60 mL/min (>60) Glucose Level 92 MG/DL (74-106) Calcium Level 8.8 MG/DL (8.5-10.1) Plan Problems: (1) Presence of inferior vena cava filter (2) Dizziness (3) Hypotension (4) Pulmonary nodule (5) Distal end of ulna fracture, closed (6) Laceration of left hand Assessment & Plan: 34-year-old male laceration to left hand from wine bottle status post washout and repair at [facility]. Patient took off dressings and plan care plan unsure of what it was. On evaluation left hand the fourth and fifth digit have edema at the PIP phalangeal joint but no signs of infection or abscess. No fluid collection or hematoma. Wound is clean and intact. No drainage. Range of motion mildly deficit given the edema. With assistance as has significant improved range of motion. Recommend dressings but patient prefers to leave wound open to air. At this point will monitor wound locally. Do not recommend a splint as he does have range of motion did not have any other significant injury though aware of. Okay to wash and daily with soap and water. Local hygiene. Will monitor. Thank you for your participation's care will follow with recommendations Bones/joints: No acute fracture, dislocation, or destructive process is noted about the left hand. There is a healing fracture of the distal ulna with callus formation. Soft tissues: Soft tissues are unremarkable. No radiopaque foreign body. IMPRESSION: 1. No acute fracture or dislocation detected. 2. Healing fracture about the distal ulna with callus formation. much improved wound c/d/i edema resolving range of motion returning (7) left hand lceration Terrence Jurado Jan 17, 2020 18:37
--- NOTE | 2020-01-17 23:12 | Psych Consult Progress Note ---
Psychiatry Progress Note Psychiatry Progress Note Neurological/Psychiatric: Reports: anxiety, depressed; Denies: no symptoms, emotional problems, headache, numbness, paresthesia, pre-existing deficit, seizure, tingling, tremors, weakness, other Allergies: Coded Allergies: No Known Allergies (Unverified , 01/13/20) Objective Data Height (Feet): 5 Height (Inches): 9.00 Weight (Pounds): 142 General Appearance: alert Additional Comments: Alert, oriented times self, place, situation. Mood is irritable, angry. Affect is blunted, congruent with mood. Thought process is concrete. Thought content, no suicidal or homicidal ideation. Cognition is impaired. Insight and judgment is limited. Assessment/Plan Status: stable, progressing Assessment/Plan: ASSESSMENT: Emmalena I Substance abuse disorder. Alcohol dependence. Emmalena II Deferred. Emmalena III As above. Emmalena IV Low. Emmalena V 20. PLAN: 1. We will start patient on Depakote. 2. Ativan p.r.n. 3. Provide the patient with reality orientation and supportive therapy. Miki Reyna MD Jan 17, 2020 23:12
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
== END 2020-01-17 15:47 | disposition home or self-care (01) | DRG 207 ==
LOC: EDBD 17:39 → EMR 19:23 → 2E 21:07 → EDBEDREQ 22:20 → 4E 01-16 17:18
DX: I95.9 Hypotension, unspecified (principal); S52.602D Unspecified fracture of lower end of left ulna, subsequent encounter for closed fracture with routine healing; X58.XXXD Exposure to other specified factors, subsequent encounter; N39.0 Urinary tract infection, site not specified; L03.114 Cellulitis of left upper limb; I35.0 Nonrheumatic aortic (valve) stenosis; I11.0 Hypertensive heart disease with heart failure; I50.9 Heart failure, unspecified; Z59.0 Homelessness; Z95.828 Presence of other vascular implants and grafts; R91.1 Solitary pulmonary nodule; S61.412D Laceration without foreign body of left hand, subsequent encounter; W25.XXXD Contact with sharp glass, subsequent encounter; D50.9 Iron deficiency anemia, unspecified; F10.20 Alcohol dependence, uncomplicated; S42.301S Unspecified fracture of shaft of humerus, right arm, sequela; V09.9XXS Pedestrian injured in unspecified transport accident, sequela; I34.0 Nonrheumatic mitral (valve) insufficiency; I36.1 Nonrheumatic tricuspid (valve) insufficiency; Z86.718 Personal history of other venous thrombosis and embolism; F99 Mental disorder, not otherwise specified; F19.10 Other psychoactive substance abuse, uncomplicated; E46 Unspecified protein-calorie malnutrition; F17.200 Nicotine dependence, unspecified, uncomplicated
CPT/HCPCS: 29125; 36415; 70450; 71045; 80048; 80053; 80202; 80307; 81003; 82270; 82550; 82728; 84443; 84484; 85025; 85610; 85730; 87040; 87086; 93005; 93306; 96361; 96365; 96375; 99285; G0480; J2405; J7030